=== PATIENT | female | born 1995 | race Caucasian/White ===

== ENCOUNTER 2022-09-09 13:38 | Outpatient (OUT) | payer BC, SELFPAY ==
--- NOTE | 2022-09-09 13:39 | US_ITS ---
[place] [address] Patient Name: MARGARITA SERRA MRN: [id number] date: 1995 Sex: F Assigned Patient Location: [place] Current Patient Location: Accession/Order Number: [id number] Exam Date: 09/09/2022 13:40 Report Date: 09/09/2022 19:30 At the request of: MAGDALENA DEGROOT Procedure: US OB transvaginal EXAMINATION: US OB transvaginal HISTORY: Positive test COMPARISON: No relevant comparison available. FINDINGS: GESTATIONAL SAC: Large amount of debris within gestational sac; sac is normal in size and shape. YOLK SAC: Present and normal appearing. POLE: Present and normal appearing. CARDIAC: Present. UTERUS: Normal size and appearance. OVARIES: Right: Normal. Left: Corpus lutein cyst. CERVIX: 5.1 cm in length and closed. CUL-DE-SAC: Normal. OTHER: Small subchorionic hematoma, 1.4 x 1.0 x 0.3 cm. AGE BY LMP: Unknown LMP. BEBO BY LMP: AGE BY US CRL: 9 weeks 3 days BEBO BY US CRL: 04/11/2023 US/US OB transvaginal IMPRESSION: 1. Single live intrauterine 9 weeks 3 days by today's ultrasound. 2. Large amount of echogenic debris throughout the gestational sac; nonspecific. Follow-up recommended. Electronically authenticated by: JENNY MONTELONGO Date: 09/09/2022 19:30
== END 2022-09-09 13:39 | disposition home or self-care (01) ==
LOC: US 13:39
PROVIDERS: Visit Provider Obstetrics & Gynecology
DX: Z34.91 Encounter for supervision of normal pregnancy, unspecified, first trimester (principal)
CPT/HCPCS: 76817

== ENCOUNTER 2022-09-13 07:30 | Outpatient (OUT) | payer BC, SELFPAY ==
[2022-09-13 08:34] LABS: Thyroid Stimulating Hormone 1.497 uIU/mL (0.358-3.740)
[2022-09-13 09:16] LABS: Basophils Absolute Auto 0.1 10^3/uL (0.0-0.1); Basophils Percent Auto 0.6 % (0.2-2.0); Eosinophils Absolute Auto 0.1 10^3/uL (0.0-0.7); Eosinophils Percent Auto 1.6 % (0.9-7.0); Hematocrit 38.5 % (36.0-48.0); Hemoglobin 12.7 g/dL (12.0-16.0); Immature Granulocytes Abs Auto 0.02 10^3/uL (0.00-0.03); Immature Granulocytes Pct Auto 0.2 % (0.0-0.5); Lymphocytes Absolute Auto 2.2 10^3/uL (1.2-3.8); Lymphocytes Percent Auto 25.3 % (20.5-60.0); Mean Corpuscular Hemoglobin 27.9 pg (26.7-34.0); Mean Corpuscular Volume 84.6 fL (81.0-99.0); Mean Platelet Volume 9.6 fL (9.5-13.5); Monocytes Absolute Auto 0.4 10^3/uL (0.3-0.8); Monocytes Percent Auto 4.9 % (1.7-12.0); Neutrophils Absolute Auto 5.8 10^3/uL (1.4-6.5); Neutrophils Percent Auto 67.4 % (43.0-75.0); Platelet Count 457 10^3/uL (150-450); Red Blood Count 4.55 10^6/uL (4.20-5.40); Red Cell Distribution Width 14.6 % (11.0-15.0); White Blood Count 8.6 10^3/uL (4.0-11.0)
[2022-09-13 09:21] LABS: Estimated Average Glucose 105 mg/dL; Glycohemoglobin A1C 5.3 % (4.5-6.2)
[2022-09-14 05:12] LABS: HCV Ab Non Reactive (Non Reactive); HIV Ab/p24 Ag Screen Non Reactive (Non Reactive); Rubella Antibodies, IgG 7.78 index (Immune >0.99)
[2022-09-14 06:09] LABS: HBsAg Screen Negative (Negative)
[2022-09-14 11:08] LABS: Rapid Plasma Reagin, Quant Non Reactive (NonRea<1:1)
== END 2022-09-13 07:31 | disposition home or self-care (01) ==
LOC: LAB 07:31
PROVIDERS: Visit Provider Obstetrics & Gynecology
DX: Z34.90 Encounter for supervision of normal pregnancy, unspecified, unspecified trimester (principal)
CPT/HCPCS: 36415; 83036; 84443; 85025; 86592; 86706; 86762; 86803; 86850; 86900; 86901; 87086; 87389

== ENCOUNTER 2022-09-26 08:01 | Emergency (ER) | payer BC, SELFPAY ==
[2022-09-26 08:05] VITALS: BP 114/68; PULSE 76; RESP 18; TEMP 36.4; O2SAT 99
--- NOTE | 2022-09-26 08:34 | ED_ITS ---
HPI - Abdominal Pain General Chief Complaint: Abdominal Pain Stated Complaint: 12 wks cramping Time Seen by Provider: 09/26/22 08:09 Source: patient Mode of arrival: walk-in Limitations: no limitations History of Present Illness HPI narrative: At 5am the patient developed severe abdominal cramping. She said that the pain has come in waves since then. No tylenol or anything else taken for the pain. She is 12 weeks US obtained earlier this month showed live IUP and BEBO 04/11/23. No vaginal bleeding. She complains of some pain to the left lower back. She became concerned because this did not happen with her first . Related Data Previous Rx's Medication Instructions Recorded nitrofurantoin 100 mg PO BID 7 days #14 caps 09/26/22 monohydrate/macrocrystals 100 mg capsule (Macrobid) Allergies Allergy/AdvReac Type Severity Reaction Status Date / Time No Known Drug Allergies Allergy Verified 09/26/22 08:05 PFSH PFSH Social History Smoking status: Current every day smoker Exam Narrative Exam Narrative: Nurses notes and vital signs reviewed and patient is not hypoxic. afebrile General: Well-appearing and in no apparent distress. Skin: Warm, dry, no pallor noted. No rash. Eye: Pupils are equal, round and EOMI. No scleral icterus. Ears, Nose, Mouth, and Throat: Oral mucosa is moist Cardiovascular: Regular Rate and Rhythm without murmur, gallop or rub. Respiratory: No accessory muscle use or respiratory distress. Lungs are clear to auscultation, no wheezing, rales or rhonchi Back: No midline thoracic or lumbar vertebral tenderness. No CVA tenderness Musculoskeletal: normal ROM, no lower extremity edema/swelling GI: Abdomen is soft, non-distended. Normal bowel sounds. No masses appreciated. No tenderness to palpation. No rebound, guarding, or rigidity noted. Neurological: A&O x4. No cranial nerve dysfunction observed. No truncal ataxia. Moves all extremities. Sensation intact. Psychiatric: Cooperative and interactive. Normal mood and affect. Constitutional Vital Signs, click to edit/add: Last Vital Signs Temp 97.6 F 09/26/22 08:05 Pulse 76 09/26/22 08:05 Resp 18 09/26/22 08:05 BP 114/68 09/26/22 08:05 Pulse Ox 99 09/26/22 08:05 Course Vital Signs Vital signs: Vital Signs Temperature 97.6 F 09/26/22 08:05 Pulse Rate 76 09/26/22 08:05 Respiratory Rate 18 09/26/22 08:05 Blood Pressure 114/68 09/26/22 08:05 Pulse Oximetry 99 09/26/22 08:05 Temperature 97.6 F 09/26/22 08:05 Pulse Rate 76 09/26/22 08:05 Respiratory Rate 18 09/26/22 08:05 Blood Pressure 114/68 09/26/22 08:05 Pulse Oximetry 99 09/26/22 08:05 MDM - Abdominal Pain MDM Narrative Medical decision making narrative: Patient given tylenol and urine ordered to be obtained for testing. UA showed leuk est. Call placed to Dr Suárez - Dr Ma is covering. Discussed patient's case - recommended patient reassurance, treatment for any potential UTI, a voidance of intercourse, ED return if bleeding develops, otherwise follow up with Dr Suárez as needed. Patient prescribed macrobid. Lab Data Attestation: I reviewed the patient's lab results. Labs: Lab Results 09/26/22 Range/Units 08:35 Urine Color Lt. yellow (YELLOW) Urine Clarity Clear (CLEAR) Urine pH 6.5 (5.0-9.0) Ur Specific Wesley 1.025 (1.005-1.025) Urine Protein Negative (NEG/TRACE) mg/dL Urine Glucose (UA) Negative (NEGATIVE) mg/dL Urine Ketones Negative (NEGATIVE) mg/dL Urine Occult Blood Negative (NEGATIVE) Urine Nitrite Negative (NEGATIVE) Urine Bilirubin Negative (NEGATIVE) Urine Urobilinogen 0.2 (0.2-1.0) EU/dL Ur Leukocyte Esterase Moderate A (NEGATIVE) Discharge Plan Discharge Chief Complaint: Abdominal Pain Clinical Impression: UTI (urinary tract infection), Abdominal pain Patient Disposition: Home, Self-Care Time of Disposition Decision: 09:22 Prescriptions / Home Meds: New nitrofurantoin monohyd/m-cryst [Macrobid] 100 mg capsule 100 mg PO BID 7 Days Qty: 14 0RF Rx Instructions: must administer with a meal/food Instructions: Abdominal Pain in (ED), Urinary Tract Infection in (ED) Stand Alone Forms: Portal Instructions Referrals: Shaun Suárez DO [Physician] - 1 week
[2022-09-26] MEDS: ACETAMINOPHEN 500 MG TABLET 1000 MG PO (08:44)
[2022-09-26 09:04] LABS: Bilirubin Urine NEGATIVE (NEGATIVE); Blood Urine NEGATIVE (NEGATIVE); Clarity Urine CLEAR (CLEAR); Color Urine LT. YELLOW (YELLOW); Glucose Urine UA NEGATIVE (NEGATIVE); Ketones Urine NEGATIVE (NEGATIVE); Leukocyte Esterase Urine MODERATE (NEGATIVE); Nitrite Urine NEGATIVE (NEGATIVE); Protein Urine NEGATIVE (NEG/TRACE); Specific Gravity Urine 1.025 (1.005-1.025); Urobilinogen Urine 0.2 EU/dL (0.2-1.0); pH Urine 6.5 (5.0-9.0)
[2022-09-26 09:09] LABS: Urine Microscopic Indicated YES
[2022-09-26 09:41] LABS: Bacteria Urine LARGE #/HPF (NONE SEEN); Mucus Urine NONE SEEN (NONE SEEN); RBC Urine NONE SEEN #/HPF (0-2); Squamous Epithelial Cell Urine MODERATE #/LPF (NONE/RARE)
[2022-09-26 09:42] LABS: Urine Culture Indicated YES
== END 2022-09-26 09:32 | disposition home or self-care (01) ==
PROVIDERS: Emergency Provider Emergency Medicine
DX: O23.41 Unspecified infection of urinary tract in pregnancy, first trimester (principal); N39.0 Urinary tract infection, site not specified; O26.891 Other specified pregnancy related conditions, first trimester; R10.9 Unspecified abdominal pain; O99.331 Smoking (tobacco) complicating pregnancy, first trimester; F17.210 Nicotine dependence, cigarettes, uncomplicated; Z3A.12 12 weeks gestation of pregnancy
CPT/HCPCS: 81001; 87086; 99283

== ENCOUNTER 2022-11-09 20:06 | Outpatient (REF) | payer BC, SELFPAY ==
[2022-11-16 22:08] LABS: Age Gdln ACOG Testing Note (.); HPV Aptima Negative (Negative); IGP, rfx Aptima HPV ASCU Note (.)
== END 2022-11-09 20:07 | disposition home or self-care (01) ==
LOC: LAB 20:06
PROVIDERS: Visit Provider Obstetrics & Gynecology
DX: Z01.419 Encounter for gynecological examination (general) (routine) without abnormal findings (principal)
CPT/HCPCS: 87624; G0145

== ENCOUNTER 2022-11-23 01:24 | Emergency (ER) | payer BC, SELFPAY ==
[2022-11-23 01:26] VITALS: BP 138/88; PULSE 78; RESP 18; TEMP 36.7; O2SAT 99; BMI 31.0
--- NOTE | 2022-11-23 01:40 | PC.NURSE ---
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
--- NOTE | 2022-11-23 01:48 | ED.EXTPRO1 ---
HPI - Extremity Problem General Chief complaint: Extremity Problem, Nontraumatic Stated complaint: RIGHT ARM PAIN Time Seen by Provider: 11/23/22 01:41 Source: patient Mode of arrival: walk-in Limitations: no limitations History of Present Illness HPI Narrative: patient is 5 months . 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 State she spent 7 hours scrubbing the wheels clean as they were very dirty. she now presents complaining of pain of scrubbing arm. States is she rest the arm it feels better but it hurts again when she uses it. no weakness , numbness or other injury. No other complaint Related Data Allergies Allergy/AdvReac Type Severity Reaction Status Date / Time No Known Drug Allergies Allergy Verified 09/26/22 08:05 Review of Systems ROS Status of ROS 10 or more systems reviewed and unremarkable except as noted in history and below [facility] Social History Smoking status: Current every day smoker Exam Constitutional Vital Signs, click to edit/add: Last Vital Signs Temp 98.0 F 11/23/22 01:26 Pulse 78 11/23/22 01:26 Resp 18 11/23/22 01:26 BP 138/88 11/23/22 01:26 Pulse Ox 99 11/23/22 01:26 O2 Del Method Room Air 11/23/22 01:26 Common normals: no apparent distress, average body habitus, oriented x3, no limitations, healthy appearing, alert and well nourished [facility] Common normals: normocephalic Eye Common normals: PERRL, EOMs intact bilaterally and conjunctivae normal Respiratory Common normals: normal respiratory effort, no retractions and no use of accessory muscles Cardio Common normals: regular rate, regular rhythm, S1 normal heart sound and S2 normal heart sound GI Common normals: non-tender Extremity Common normals: normal to inspection Other: normal inspection of the RUE. No deformity or swelling. normal hand grasp Neuro Common normals: oriented x3, CN's II-XII intact bilaterally, moves all extremities, no focal motor deficits and no sensory deficits noted Psych Appearance: grossly normal Course Vital Signs Vital signs: Vital Signs Temperature 98.0 F 11/23/22 01:26 Pulse Rate 78 11/23/22 01:26 Respiratory Rate 18 11/23/22 01:26 Blood Pressure 138/88 11/23/22 01:26 Pulse Oximetry 99 11/23/22 01:26 Oxygen Delivery Method Room Air 11/23/22 01:26 Temperature 98.0 F 11/23/22 01:26 Pulse Rate 78 11/23/22 01:26 Respiratory Rate 18 11/23/22 01:26 Blood Pressure 138/88 11/23/22 01:26 Pulse Oximetry 99 11/23/22 01:26 Oxygen Delivery Method Room Air 11/23/22 01:26 MDM - Extremity (Nontraumatic) MDM Narrative Medical decision making narrative: patient presents with overuse strain injury of the right upper extremity after scrubbing 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 she is also 5 months and not receiving relief with tylenol. Given one time dose of prednisone as anti inflammatory . Advised to avoid using her arm in any repetitive fashion until she is rechecked . Discharge Plan Discharge Chief Complaint: Extremity Problem, Nontraumatic Clinical Impression: Muscle strain of right upper extremity Patient Disposition: Home, Self-Care Instructions: Muscle Strain (ED) Additional Instructions: avoid use of the right arm in any repetitive fashion until rechecked by your doctor Stand Alone Forms: Portal Instructions Referrals: Physician,Non-Staff, MD [Primary Care Provider] - 1 week
[2022-11-23] MEDS: PREDNISONE 20 MG TABLET 40 MG PO (02:10)
== END 2022-11-23 02:14 | disposition home or self-care (01) ==
PROVIDERS: Emergency Provider Internal Medicine
DX: O9A.212 Injury, poisoning and certain other consequences of external causes complicating pregnancy, second trimester (principal); S46.911A Strain of unspecified muscle, fascia and tendon at shoulder and upper arm level, right arm, initial encounter; X50.3XXA Overexertion from repetitive movements, initial encounter; O99.332 Smoking (tobacco) complicating pregnancy, second trimester; F17.210 Nicotine dependence, cigarettes, uncomplicated; Z3A.20 20 weeks gestation of pregnancy
CPT/HCPCS: 99283

== ENCOUNTER 2022-11-23 09:00 | Outpatient (OUT) | payer BC, SELFPAY ==
--- NOTE | 2022-11-23 09:02 | US_ITS ---
[address] [address] Patient Name: MARGARITA SERRA MRN: [id number] date: 1995 Sex: F Assigned Patient Location: [place] Current Patient Location: .[facility] Accession/Order Number: [id number] Exam Date: 11/23/2022 09:03 Report Date: 11/23/2022 10:37 At the request of: MAGDALENA DEGROOT Procedure: US OB cervical length EXAMINATION: US OB anatomy HISTORY: ANATOMY COMPARISON: No relevant comparison available. TECHNIQUE: Transabdominal sonographic examination was performed for obstetrical and evaluation. FINDINGS: Number: 1 Heart Rate: 153.0 bpm H.B. /min Amniotic Fluid Volume: Subjectively normal position: Cephalic presentation, longitudinal lie Placental Location: Posterior, placental edge 4.7 cm from the internal cervical os Cervix Length: 4.2 cm , closed Normal anatomy: Lateral ventricles, cerebellum, posterior fossa, nose, lips, orbits, four-chamber heart, RVOT, LVOT, diaphragm, stomach, kidneys, abdominal cord insertion, bladder, umbilical cord arteries, three-vessel cord, spine, extremities BIOMETRY: BPD: 4.5 cm 19 weeks 3 days , 23% HC: 16.7 cm 19 weeks 3 days, 13% AC: 15.3 cm 20 weeks 3 days, 55% FL: 3.3 cm 20 weeks 2 days, 47% EFW:341.6 grams; 12 ounces, 51% FL/AC: 21.6 FL/BPD: 73.8 HC/AC: 1.1 GESTATIONAL AGE: Age by EDC: 20 weeks 1 days BEBO by EDC: 04/11/2023 Age by current US: 19 weeks 6 days BEBO by current US: 04/13/2023 US/US OB cervical length IMPRESSION: Normal anatomy scan *Reference: [employer] Practice Guideline for the performance of Obstetric Ultrasound Examinations, November 07, 2006. Electronically authenticated by: CESAR LORENZANA Date: 11/23/2022 10:37
--- NOTE | 2022-11-23 09:03 | US_ITS ---
[address] [address] Patient Name: MARGARITA SERRA MRN: [id number] date: 1995 Sex: F Assigned Patient Location: US Current Patient Location: .[facility] Accession/Order Number: [id number] Exam Date: 11/23/2022 09:03 Report Date: 11/23/2022 10:37 At the request of: MAGDALENA DEGROOT Procedure: US OB anatomy EXAMINATION: US OB anatomy HISTORY: ANATOMY COMPARISON: No relevant comparison available. TECHNIQUE: Transabdominal sonographic examination was performed for obstetrical and evaluation. FINDINGS: Number: 1 Heart Rate: 153.0 bpm H.B. /min Amniotic Fluid Volume: Subjectively normal position: Cephalic presentation, longitudinal lie Placental Location: Posterior, placental edge 4.7 cm from the internal cervical os Cervix Length: 4.2 cm , closed Normal anatomy: Lateral ventricles, cerebellum, posterior fossa, nose, lips, orbits, four-chamber heart, RVOT, LVOT, diaphragm, stomach, kidneys, abdominal cord insertion, bladder, umbilical cord arteries, three-vessel cord, spine, extremities BIOMETRY: BPD: 4.5 cm 19 weeks 3 days , 23% HC: 16.7 cm 19 weeks 3 days, 13% AC: 15.3 cm 20 weeks 3 days, 55% FL: 3.3 cm 20 weeks 2 days, 47% EFW:341.6 grams; 12 ounces, 51% FL/AC: 21.6 FL/BPD: 73.8 HC/AC: 1.1 GESTATIONAL AGE: Age by EDC: 20 weeks 1 days BEBO by EDC: 04/11/2023 Age by current US: 19 weeks 6 days BEBO by current US: 04/13/2023 US/US OB anatomy IMPRESSION: Normal anatomy scan *Reference: [employer] Practice Guideline for the performance of Obstetric Ultrasound Examinations, November 07, 2006. Electronically authenticated by: CESAR LORENZANA Date: 11/23/2022 10:37
== END 2022-11-23 09:01 | disposition home or self-care (01) ==
LOC: US 09:01
PROVIDERS: Visit Provider Obstetrics & Gynecology
DX: Z36.89 Encounter for other specified antenatal screening (principal); S46.911A Strain of unspecified muscle, fascia and tendon at shoulder and upper arm level, right arm, initial encounter; X50.3XXA Overexertion from repetitive movements, initial encounter; O99.332 Smoking (tobacco) complicating pregnancy, second trimester; F17.210 Nicotine dependence, cigarettes, uncomplicated; Z3A.20 20 weeks gestation of pregnancy
CPT/HCPCS: 76805; 76817; 99283

== ENCOUNTER 2023-01-11 08:27 | Outpatient (OUT) | payer BC, SELFPAY ==
[2023-01-11 09:59] LABS: Glucose 1 Hour 140 mg/dL
== END 2023-01-11 08:28 | disposition home or self-care (01) ==
LOC: LAB 08:27
PROVIDERS: Visit Provider Obstetrics & Gynecology
DX: Z13.1 Encounter for screening for diabetes mellitus (principal)
CPT/HCPCS: 36415; 82950

== ENCOUNTER 2023-01-21 07:16 | Outpatient (OUT) | payer BC, SELFPAY ==
[2023-01-21 07:35] LABS: Glucose Fasting 88 mg/dL (74-106)
[2023-01-21 09:14] LABS: Glucose 1 Hour 141 mg/dL
[2023-01-21 09:49] LABS: Glucose 2 Hour 141 mg/dL
[2023-01-21 10:52] LABS: Glucose 3 Hour 99 mg/dL
== END 2023-01-21 07:17 | disposition home or self-care (01) ==
LOC: LAB 07:16
PROVIDERS: Visit Provider Obstetrics & Gynecology
DX: Z13.1 Encounter for screening for diabetes mellitus (principal)
CPT/HCPCS: 36415; 82951; 82952

== ENCOUNTER 2023-02-17 10:43 | Outpatient (OUT) | payer BC, SELFPAY ==
--- NOTE | 2023-02-17 10:28 | US_ITS ---
[place] [id number] Patient Name: MARGARITA SERRA MRN: [id number] date: 1995 Sex: F Assigned Patient Location: US Current Patient Location: US Accession/Order Number: [id number] Exam Date: 02/17/2023 10:29 Report Date: 02/17/2023 12:09 At the request of: MAGDALENA DEGROOT Procedure: US OB growth EXAMINATION: US OB growth HISTORY: SIZE INCONSISTENT WITH DATES COMPARISON: No relevant comparison available. FINDINGS: Heart Rate: 142.0 bpm Amniotic Fluid Volume: 16.2 cm Number: 1.0 Position: Cephalic presentation, longitudinal lie Maximum Vertical Pocket: 5.8 cm cm 2.7 cm cm 4.0 cm cm 3.8 cm cm BIOMETRY: BPD: 7.8 cm cm; 31 weeks 1 days; , 11% HC: 29.4 cmcm; 32 weeks 4 days , 16% AC: 30.1 cm cm; 34 weeks 0 days, 90% FL: 6.3 cm cm; 32 weeks 4 days; 39.3 % % EFW: 2137.0 grams, 4 lbs. 11 oz., 64% FL/AC: 20.9 FL/BPD: 80.9 HC/AC: 1.0 GESTATIONAL AGE: Age by EDC: 32 weeks 3 days BEBO by EDC: 04/11/2023 Age by US: 32 weeks 4 days BEBO by US: 04/10/2023 US/US OB growth IMPRESSION: Normal interval growth Electronically authenticated by: CESAR LORENZANA Date: 02/17/2023 12:09
== END 2023-02-17 10:44 | disposition home or self-care (01) ==
LOC: US 10:43
PROVIDERS: Visit Provider Obstetrics & Gynecology
DX: O26.843 Uterine size-date discrepancy, third trimester (principal); Z3A.32 32 weeks gestation of pregnancy
CPT/HCPCS: 76816

== ENCOUNTER 2023-03-15 22:25 | Outpatient (REF) | payer BC, SELFPAY ==
--- OUTSIDE RECORDS SUMMARY | 2023-03-15 22:28 | XMS_ITS | CCD ---
Author Name Unknown Address [address] [facility] [address] [place] [address] Organization [facility] Care Team Providers Care Wood Science Professor Name Role Phone Awais Tatum Primary Care Unavailable Awais Tatum Attending Unavailable REQUEST, DR CARPENTER LISTED Primary Care Unavaila ble ZANE ., DR NICHOLS Attending Unavailable ZANE ., DR NICHOLS Admitting Unavailable REQUEST, DR CARPENTER LISTED Primary Care Unavaila ble ZANE ., DR NICHOLS Attending Unavailable ZANE ., DR NICHOLS Admitting Unavailable MARKER ., DR GRIFFIN Consulting Unavailable MARKER ., DR GRIFFIN Attending Unavailable MARKER ., DR GRIFFIN Admitting Unavailable REQUEST, DR CARPENTER LISTED Primary Care Unavaila ble ZANE ., DR NICHOLS Consulting Unavailable REQUEST, DR CARPENTER LISTED Primary Care Unavaila ble ZANE ., DR NICHOLS Attending Unavailable ZANE ., DR NICHOLS Admitting Unavailable HOLBROOK, DR CESAR Tate Consulting Unavailable REQUEST, DR CARPENTER LISTED Primary Care Unavaila ble ZANE ., DR NICHOLS Attending Unavailable ZANE ., DR NICHOLS Admitting Unavailable ZANE ., DR NICHOLS Consulting Unavailable ZANE ., DR NICHOLS Consulting Unavailable REQUEST, DR PAULINE LISTED Primary Care Unavaila ble ZANE ., DR NICHOLS Attending Unavailable ZANE ., DR NICHOLS Admitting Unavailable AHDOOT, LALO Consulting Unavailable KARASIK ., DR DOYLE Consulting Unavailabl e KARASIK ., DR DOYLE Attending Unavailabl e KARASIK ., DR DOYLE Admitting Unavailabl e REQUEST, DR PAULINE LISTED Primary Care Unavaila ble ZANE ., DR NICHOLS Consulting Unavailable ZIEBER, DR JENNY Mauricio Consulting Unavailable ZANE ., DR NICHOLS Consulting Unavailable REQUEST, DR PAULINE LISTED Primary Care Unavaila ble ZANE ., DR NICHOLS Attending Unavailable AZNE ., DR NICHOLS Admitting Unavailable ZANE ., DR NICHOLS Procedure Practitioner Unavail able WEST, DR CESAR Tate Consulting Unavailable REQUEST, DR NONE LISTED Primary Care Unavaila ble ZANE ., DR NICHOLS Attending Unavailable ZANE ., DR NICHOLS Admitting Unavailable ZANE ., DR NICHOLS Consulting Unavailable ZANE ., DR NICHOLS Consulting Unavailable REQUEST, DR NONE LISTED Primary Care Unavaila ble ZANE ., DR NICHOLS Attending Unavailable ZANE ., DR NICHOLS Admitting Unavailable ZANE ., DR NICHOLS Consulting Unavailable REQUEST, DR NONE LISTED Primary Care Unavaila ble ZANE ., DR NICHOLS Attending Unavailable ZANE ., DR NICHOLS Admitting Unavailable ZANE ., DR NICHOLS Consulting Unavailable REQUEST, NONE LISTED Primary Care Unavaila ble ZANE ., DR NICHOLS Attending Unavailable ZANE ., DR NICHOLS Admitting Unavailable ZANE ., DR NICHOLS Consulting Unavailable REQUEST, DR NONE LISTED Primary Care Unavaila ble ZANE ., DR NICHOLS Attending Unavailable ZANE ., DR NICHOLS Admitting Unavailable REQUEST, NONE LISTED Primary Care Unavaila ble ZANE ., DR NICHOLS Attending Unavailable ZANE ., DR NICHOLS Admitting Unavailable ZANE, MAGDALENA Attending Unavailable MATTAGNIESZKA Attending Unavailable ZANE, MAGDALENA Attending Unavailable ZANE, MAGDALENA Attending Unavailable MATT, AGNIESZKA Attending Unavailable Allergies Allergy Classification Reported Allergen(s) Allergy Type Date of Onset Reaction(s) Facility (1 source) No Known Medication Allergies; Translations: [No Known Medication Allergies] Propensity to adverse reactions to drug (disorder) [facility] Repository Problems Active Problems Problem Classification Problem Date Documented Da te Episodic/Chronic Biliary tract disease (1 source) Obstruction of bile duct; 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-2021 Chronic Past or Other Problems Problem Classification Problem Date Documented Date Episodic/Chronic Abdominal pain (1 source) Right upper quadrant pain; Translations: [RIGHT UPPER QUADRANT PAIN] Onset: 08-25-2021 Episodic Diabetes mellitus without complication (1 source) Impaired glucose tolerance (oral); Translations: [IMPAIRED GLUCOSE TOLERANCE ORAL] Onset: 06-24-2021 Episodic Diabetes or abnormal glucose tolerance complicating ; childbirth; or the puerperium (1 source) Abnormal glucose complicating ; Translations: [ABNORMAL GLUCOSE COMP ] Onset: 06-24-2021 Episodic Other complications of ; puerperium affecting management of mother (4 sources) Other complications of the puerperium, not elsewhere classified; Translations: [OTHER COMPLICATIONS PUERPERIUM NEC] Onset: 08-21-2021 Episodic Other complications of ; puerperium affecting management of mother (1 source) Liver and biliary tract disorders in childbirth; Translations: [LIVER AND JEAN CLAUDE TRACT D/O CHILDBIRTH] Onset: 12-08-2021 Episodic Other complications of (4 sources) Maternal care for excessive growth, third trimester, not applicable or unspecified; Translations: [MAT CARE EXCSS FTL GRTH 3RD TRI UNS] Onset: 08-16-2021 Episodic Other complications of (4 sources) Decreased movements, third trimester, not applicable or unspecified; Translations: [DECR MOVEMENTS 3RD TRI NA/UNS] Onset: 07-30-2021 Episodic Other connective tissue disease (1 source) Other specified soft tissue disorders; Translations: [OTHER SPEC SOFT TISSUE DISORDERS] Onset: 08-25-2021 Episodic Other inflammatory condition of skin (4 sources) Pruritus, unspecified; Translations: [PRURITUS UNSPECIFIED] Onset: 07-22-2021 Episodic Other and delivery including normal (9 sources) Encounter for care and examination of lactating mother; Translations: [Encounter for routine follow-up] Onset: 2021 Episodic Other screening for suspected conditions (not mental disorders or infectious disease) (8 sources) Encounter for screening for Streptococcus B; Translations: [Encounter for screening for diabetes mellitus] Onset: 06-09-2021 Episodic Residual codes; unclassified (1 source) 37 weeks gestation of ; Translations: [37 WEEKS GESTATION OF ] Onset: 12-08-2021 Episodic Residual codes; unclassified (1 source) 36 weeks gestation of ; Translations: [36 WEEKS GESTATION OF ] Onset: 08-07-2021 Episodic Residual codes; unclassified (1 source) 35 weeks gestation of ; Translations: [35 WEEKS GESTATION OF ] Onset: 08-04-2021 Episodic Residual codes; unclassified (1 source) 29 weeks gestation of ; Translations: [29 WEEKS GESTATION OF ] Onset: 06-24-2021 Episodic Screening and history of mental health and substance abuse codes (1 source) Personal history of nicotine dependence; Translations: [PERSONAL HISTORY OF NICOTINE DEPEND] Onset: 12-08-2021 Episodic Results Test Name Value Interpretation Reference Range Facil ity Phone Message/Callon Phone Message/Call - From: Hattie Bhatti LPN ([facility] ([facility])) To: Awais Tatum MD, MD; Sent: 12/03/2021 14:50:03 EDT Subject: General Message Caller Name: CinthiavChatter; Caller Number: [phone] per pharmacist, Gentamicin Opth ointment is not available, they do have Erythromycin ointment or Maxitral ointment From: Awais Tatum MD To: [facility] [employer] ([facility]); Sent: 12/03/2021 15:03:07 EDT Subject: Med Management Caller Name: CinthiavChatter; Caller Number: [phone] Submitted: Order:erythromycin ophthalmic (erythromycin 0.5% ophthalmic ointment) 1 yessenia OPTH QID Qty: 3.5 gm Duration: 5 day(s) Refills: 0 Substitutions Allowed Route To Pharmacy - [id number] Signed by Awais Tatum MD 12/03/2021 15:02:00 EDT Submitted: Discontinue:gentamici n ophthalmic (gentamicin 0.3% ophthalmic ointment) Signed by Awais Tatum MD 12/03/2021 15:02:00 EDT [facility] Phone Message/Call - From: Izabella Cosby ([facility] ([facility])) To: Awais Tatum MD, MD; Cc: [facility] ([facility]); Sent: 12/03/2021 09:00:10 EDT Subject: General Message Caller Name: MARGARITA SERRA; Caller Number: , M Patient called requesting an appointment with you. She said her right eye is red and irritated. Patient denies any itching or green matter but is concerned of pink eye due to having an infant. Your schedule is full but wondering if you wanted to work her in somewhere. Please advise. From: Rc HUFFMAN, Awais Bryant To: [facility]er[facility] ([facility]); Sent: 12/03/2021 09:01:20 EDT Subject: RE: General Message Caller Name: MARGARITA SERRA; Caller Number: , 89 Patient notified and placed on schedule Normal [facility] CBC AUTO DIFFon 08-20-2021 BASO # 0.1 103/ul Normal 0.0-0.1 [facility] Comment on above: Performed By: #### C BC #### [facility] [address] [place] [address] Dr. Kailash Esquivel Basophils/100 WBC (Bld) 0.5 % Normal 0.2-2.0 [facility] Comment on above: Performed By: #### C BC #### [facility] [address] [place] [address] Dr. Kailash Esquivel EO # 0.5 103/ul Normal 0.0-0.7 [facility] Comment on above: Performed By: #### C BC #### [facility] [address] [place] [address] Dr. Kailash Esquivel Eosinophils/100 WBC (Bld) 2.7 % Normal 0.9-7.0 [facility] Comment on above: Performed By: #### C BC #### [facility] [address] [place] [address] Dr. Kailash Esquivel Erythrocyte distribution width (RBC) [Ratio] 14.7 % Normal 11.0-15.0 [facility] Comment on above: Performed By: #### C BC #### [facility] [address] [place] [address] Dr. Kailash Esquivel Hematocrit (Bld) [Volume fraction] 24.5 % Critically low 36.0-48.0 [facility] Comment on above: Performed By: #### C BC #### [facility] [address] [place] [address] Dr. Kailash Esquivel Hemoglobin (Bld) [Mass/Vol] 7.7 g/dL Critically low 12.0-16.0 [facility] Comment on above: Result Comment: Post Performed By: #### C BC #### [facility] [address] [place] [address] Dr. Kailash Esquivel IG # 0.31 10e3/ul Critically high 0.00-0.03 [facility] Comment on above: Performed By: #### C BC #### [facility] [address] [place] [address] Dr. Kailash Esquivel IG % 1.7 % Critically high 0.0-0.5 [facility] Comment on above: Performed By: #### C BC #### [facility] [address] [place] [address] Dr. Kailash Esquivel LYMPH # 2.3 103/ul Normal 1.2-3.8 [facility] Comment on above: Performed By: #### C BC #### [facility] [address] [place] [address] Dr. Kailash Esquivel Lymphocytes/100 WBC (Bld) 12.6 % Critically low 20.5-60.0 [facility] Comment on above: Performed By: #### C BC #### [facility] [address] [place] [address] Dr. Kailash Esquivel MANUAL DIFF REQ NO Normal [facility] Comment on above: Performed By: #### C BC #### [facility] [address] [place] [address] Dr. Kailash Esquivel MCH (RBC) [Entitic mass] 26.7 pg Normal 26.7-34.0 [facility] Comment on above: Performed By: #### C BC #### [facility] [address] [place] [address] Dr. Kailash Esquivel MCHC (RBC) [Mass/Vol] 31.4 g/dL Normal 29.9-35.2 [facility] Comment on above: Performed By: #### C BC #### [facility] [address] [place] [address] Dr. Kailash Esquivel MCV (RBC) [Entitic vol] 85.1 fL Normal 81.0-99.0 [facility] Comment on above: Performed By: #### C BC #### [facility] [address] [place] [address] Dr. Kailash Esquivel MONO # 1.6 103/ul Critically high 0.3-0.8 [facility] Comment on above: Performed By: #### C BC #### [facility] [address] [place] [address] Dr. Kailash Esquivel Monocytes/100 WBC (Bld) 8.7 % Normal 1.7-12.0 [facility] Comment on above: Performed By: #### C BC #### [facility] [address] [place] [address] Dr. Kailash Esquivel NEUT # 13.5 103/ul Critically high 1.4-6.5 [facility] Comment on above: Performed By: #### C BC #### [facility] [address] [place] [address] Dr. Kailash Esquivel Neutrophils/100 WBC (Bld) 73.8 % Normal 43.0-75.0 [facility] Comment on above: Performed By: #### C BC #### [facility] [address] [place] [address] Dr. Kailash Esquivel Platelet mean volume (Bld) [Entitic vol] 9.6 fL Normal 9.5-13.5 [facility] Comment on above: Performed By: #### C BC #### [facility] [address] [place] [address] Dr. Kailash Esquivel PLT 493 103/ul Critically high 150-450 [facility] Comment on above: Performed By: #### C BC #### [facility] [address] [place] [address] Dr. Kailash Esquivel RBC 2.88 106/ul Critically low 4.20-5.40 [facility] Comment on above: Performed By: #### C BC #### [facility] [address] [place] [address] Dr. Kailash Esquivel WBC 18.3 103/ul Critically high 4.0-11.0 [facility] Comment on above: Performed By: #### C BC #### [facility] [address] [place] [address] Dr. Kailash Esquivel CBC AUTO DIFFon 08-17-2021 BASO # 0.1 103/ul Normal 0.0-0.1 [facility] Comment on above: Performed By: #### D RUGRPD #### [facility] [address] [place] [address] Dr. Kailash Esquivel Basophils/100 WBC (Bld) 0.4 % Normal 0.2-2.0 [facility] Comment on above: Performed By: #### D RUGRPD #### [facility] [address] [place] [address] Dr. Kailash Esquivel EO # 0.4 103/ul Normal 0.0-0.7 [facility] Comment on above: Performed By: #### D RUGRPD #### [facility] [address] [place] [address] Dr. Kailash Esquivel Eosinophils/100 WBC (Bld) 2.3 % Normal 0.9-7.0 [facility] Comment on above: Performed By: #### D RUGRPD #### [facility] [address] [place] [address] Dr. Kailash Esquivel Erythrocyte distribution width (RBC) [Ratio] 14.5 % Normal 11.0-15.0 [facility] Comment on above: Performed By: #### D RUGRPD #### [facility] [address] [place] [address] Dr. Kailash Esquivel Hematocrit (Bld) [Volume fraction] 30.5 % Critically low 36.0-48.0 [facility] Comment on above: Performed By: #### D RUGRPD #### [facility] [address] [place] [address] Dr. Kailash Esquivel Hemoglobin (Bld) [Mass/Vol] 9.8 g/dL Critically low 12.0-16.0 [facility] Comment on above: Performed By: #### D RUGRPD #### [facility] [address] [place] [address] Dr. Kailash Esquivel IG # 0.33 10e3/ul Critically high 0.00-0.03 [facility] Comment on above: Performed By: #### D RUGRPD #### [facility] [address] [place] [address] Dr. Kailash Esquivel IG % 2.1 % Critically high 0.0-0.5 [facility] Comment on above: Performed By: #### D RUGRPD #### [facility] [address] [place] [address] Dr. Kailash Esquivel LYMPH # 1.8 103/ul Normal 1.2-3.8 [facility] Comment on above: Performed By: #### D RUGRPD #### [facility] [address] [place] [address] Dr. Kailash Esquivel Lymphocytes/100 WBC (Bld) 11.3 % Critically low 20.5-60.0 [facility] Comment on above: Performed By: #### D RUGRPD #### [facility] [address] [place] [address] Dr. Kailash Esquivel MANUAL DIFF REQ NO Normal [facility] Comment on above: Performed By: #### D RUGRPD #### [facility] [address] [place] [address] Dr. Kailash Esquivel MCH (RBC) [Entitic mass] 27.2 pg Normal 26.7-34.0 [facility] Comment on above: Performed By: #### D RUGRPD #### [facility] [address] [place] [address] Dr. Kailash Esquivel MCHC (RBC) [Mass/Vol] 32.1 g/dL Normal 29.9-35.2 [facility] Comment on above: Performed By: #### D RUGRPD #### [facility] [address] [address] [address] Kailash Esquivel MCV (RBC) [Entitic vol] 84.7 fL Normal 81.0-99.0 [facility] Comment on above: Performed By: #### D RUGRPD #### [facility] [address] [place] [address] Dr. Kailash Esquivel MONO # 1.0 103/ul Critically high 0.3-0.8 [facility] Comment on above: Performed By: #### D RUGRPD #### [facility] [address] [place] [address] Dr. Kailash Esquivel Monocytes/100 WBC (Bld) 6.0 % Normal 1.7-12.0 [facility] Comment on above: Performed By: #### D RUGRPD #### [facility] [address] [place] [address] Dr. Kailash Esquivel NEUT # 12.4 103/ul Critically high 1.4-6.5 [facility] Comment on above: Performed By: #### D RUGRPD #### [facility] [address] [place] [address] Dr. Kailash Esquivel Neutrophils/100 WBC (Bld) 77.9 % Critically high 43.0-75.0 [facility] Comment on above: Performed By: #### D RUGRPD #### [facility] [address] [place] [address] Dr. Kailash Esquivel Platelet mean volume (Bld) [Entitic vol] 9.3 fL Critically low 9.5-13.5 [facility] Comment on above: Performed By: #### D RUGRPD #### [facility] [address] [place] [address] Dr. Kailash Esquivel PLT 611 103/ul Critically high 150-450 [facility] Comment on above: Performed By: #### D RUGRPD #### [facility] [address] [place] [address] Dr. Kailash Esquivel RBC 3.60 106/ul Critically low 4.20-5.40 [facility] Comment on above: Performed By: #### D RUGRPD #### [facility] [address] [address] [address] Kailash Esquivel WBC 15.9 103/ul Critically high 4.0-11.0 [facility] Comment on above: Performed By: #### D RUGRPD #### [facility] [address] [address] [address] Kailash Esquivel Covid-19 PCR ([facility])on 08-07 SARS-CoV-2 (COVID-19) RNA CHRISTOPHER+probe Ql (Unsp spec) Not detected Normal NOT DETECTED [facility] Comment on above: Result Comment: When diagnostic testing is negative, the possibility of a false negative should be considered in the context of a patient's recent exposures and the presence of clinical signs and symptoms consistent with SARS-CoV-2. This test is not yet approved or cleared by the [place] FDA. When there are no FDA-approved or cleared tests available, and other criteria are met, FDA can make tests available under an emergency access mechanism called an Emergency Use Authorization (EUA). The EUA for this test is supported by the [employer] Director of Health and Human Service's declaration that circumstances exist to justify the emergency use of in vitro diagnostics for the detection and/or diagnosis of the virus that causes COVID-19. This EUA will remain in effect for the duration of the COVID-19 declaration justifying emergency of IVDs, unless it is terminated or revoked by the FDA (after which the test may no longer be used). Performed By: #### C VDTBH #### [facility] [address] [place] [address] Dr. Kailash Esquivel DRUG SCREEN RAPID (URINE)on 08-17-2021 AMP Negative Normal NEGATIVE [facility] Comment on above: Performed By: #### D RUGRPD #### [facility] [address] [place] [address] Dr. Kailash Esquivel BAR Negative Normal NEGATIVE [facility] Comment on above: Performed By: #### D RUGRPD #### [facility] [address] [place] [address] Dr. Kailash Esquivel BUP Negative Normal NEGATIVE [facility] Comment on above: Performed By: #### D RUGRPD #### [facility] [address] [place] [address] Dr. Kailash Esquivel BZO Negative Normal NEGATIVE [facility] Comment on above: Performed By: #### D RUGRPD #### [facility] [address] [place] [address] Dr. Kailash Esquivel DIMA Negative Normal NEGATIVE [facility] Comment on above: Performed By: #### D RUGRPD #### [facility] [address] [place] [address] Dr. Kailash Esquivel CUT-OFFS SEE BELOW Normal [facility] Comment on above: Result Comment: AMP (Amphetamine): 500ng/mL, BAR (Barbituates): 200 ng/mL, BZO (Benzodiazepines): 150 ng/mL, BUP (Buprenorphine): 10 ng/mL, DIMA (Cocaine): 150 ng/mL, mAMP (Methamphetamine): 500 ng/mL, MTD (Methadone): 200 ng/mL, OPI (Opiates): 100 ng/mL, OXY (Oxycodone): 100 ng/mL, PCP (Phencyclidine): 25 ng/mL, PPX (Propoxyphene): 300 ng/mL, THC (Cannabinoids): 50 ng/mL, TCA (Trycyclic Antidepressants): 300 ng/mL Performed By: #### D RUGRPD #### [facility] [address] [place] [address] Dr. Kailash Esquivel DRUG CUT HEADER DRUG CLASS TEST SYSTEM CUT-OFF CONCENTRATIONS ARE FOLLOWS: Normal [facility] Comment on above: Performed By: #### D RUGRPD #### [facility] [address] [place] [address] Dr. Kailash Esquivel mAMP Negative Normal NEGATIVE [facility] Comment on above: Performed By: #### D RUGRPD #### [facility] [address] [place] [address] Dr. Kailash Esquivel MTD Negative Normal NEGATIVE [facility] Comment on above: Performed By: #### D RUGRPD #### [facility] [address] [place] [address] Dr. Kailash Esquivel OPI Negative Normal NEGATIVE [facility] Comment on above: Performed By: #### D RUGRPD #### [facility] [address] [address] [address] Kailash Esquivel OXY Negative Normal NEGATIVE [facility] Comment on above: Performed By: #### D RUGRPD #### [facility] [address] [address] [address] Kailash Esquivel PCP Negative Normal NEGATIVE [facility] Comment on above: Performed By: #### D RUGRPD #### [facility] [address] [address] [address] Kailash Esquivel PPX Negative Normal NEGATIVE [facility] Comment on above: Performed By: #### D RUGRPD #### [facility] [address] [address] [address] Kailash Esquivel TCA Negative Normal NEGATIVE [facility] Comment on above: Performed By: #### D RUGRPD #### [facility] [address] [address] [address] Kailash Esquivel THC Negative Normal NEGATIVE [facility] Comment on above: Performed By: #### D RUGRPD #### [facility] [address] [address] [address] Kailash Esquivel TYPE AND SCREENon 08-17-2021 TYPE AND SCREEN Negative Normal [facility] Comment on above: Performed By: #### D RUGRPD #### [facility] [address] [address] [address] Kailash Esquivel US PREG BIOPHY W NON STRESSo n 08-12-2021 US PREG BIOPHY W NON STRESS EXAMINATION: US PREG BIOPHY W NON STRESS HISTORY: Large for gestation age fetus COMPARISON: Ultrasound biophysical 08/05/2021 TECHNIQUE: Ultrasound biophysical profile was performed. FINDINGS: BREATHING MOVEMENTS: 2.0 GROSS BODY MOVEMENTS: 2.0 TONE: 2.0 QUALITATIVE AMNIOTIC FLUID VOLUME: 2.0 PRESENTATION: Cephalic HEART RATE: 132.4 bpm bpm. AMNIOTIC FLUID VOLUME: 17.0 cm GESTATIONAL AGE: 37 weeks 1 days CONCLUSION: Total biophysical profile score 8.0. Electronically authenticated by: JENNY MONTELONGO Date: 2021-08-12 16:53 Normal [facility] GROUP B STREP CULTUREon 07-10 S. agalactiae Ag Ql (Unsp spec) Culture Observations: NEGATIVE FOR GROUP B STREPTOCOCCUS. Normal [facility] Comment on above: Performed By: #### D RUGRPTayler #### [facility] [address] [place] [address] Dr. Kailash Esquivel US PREG BIOPHY W NON STRESSo n 08-05-2021 US PREG BIOPHY W NON STRESS EXAMINATION: US PREG BIOPHY W NON STRESS HISTORY: Large for gestation age fetus COMPARISON: No relevant comparison available. TECHNIQUE: Ultrasound biophysical profile was performed in the radiology department. FINDINGS: BREATHING MOVEMENTS: 2.0 GROSS BODY MOVEMENTS: 2.0 TONE: 2.0 QUALITATIVE AMNIOTIC FLUID VOLUME: 2.0 PRESENTATION: CEPHALIC HEART RATE: 142.9 bpm H.B./min AMNIOTIC FLUID VOLUME: 14.9 cm cm GESTATIONAL AGE: 36 weeks 1 days CONCLUSION: Total biophysical profile score: 8.0 Electronically authenticated by: CESAR LORENZANA Date: 2021-08-05 16:33 Normal [facility] US PREG GROWTHon 08-05-2021 US PREG GROWTH EXAMINATION: US PREG GROWTH HISTORY: Large for gestation age fetus COMPARISON: No relevant comparison available. FINDINGS: Heart Rate: 142.9 bpm Amniotic Fluid Volume: 14.9 cm Number: 1.0 Position: Cephalic presentation, longitudinal lie Maximum Vertical Pocket: 5.8 cm cm 1.5 cm cm 3.9 cm cm 3.8 cm cm BIOMETRY: BPD: 9.2 cm cm; 37 weeks 3 days; 80% HC: 33.4 cmcm; 38 weeks 2 days, 71% AC: 36.0 cm cm; 40 weeks 0 days, greater than 97% FL: 6.8 cm cm; 35 weeks 0 days; 18.7 % % EFW: 3481.6 grams, 7 lbs. 11 oz., 96% FL/AC: 18.9 FL/BPD: 74.0 HC/AC: 0.9 GESTATIONAL AGE: Age by EDC: 36 weeks 1 days BEBO by EDC: 09/01/2021 Age by US: 37 weeks 5 days BEBO by US: 08/21/2021 IMPRESSION: Estimated weight at the 96th percentile Abdominal circumference greater than the 97th percentile Electronically authenticated by: CESAR LORENZANA Date: 2021-08-05 16:40 Normal [facility] US PREG BIOPHY W NON STRESSo n 07-30-2021 US PREG BIOPHY W NON STRESS EXAM: US PREG BIOPHY W NON STRESS HISTORY: Reduced movement COMPARISON: None. TECHNIQUE: Limited ultrasound is performed for evaluation of biophysical profile multiple grayscale and color images are submitted for review. FINDINGS: Single live is seen. heart rate is 136 bpm. AKSHAT measures 16 cm. The largest amniotic fluid pocket measures 5.8 cm. Biophysical profile: body movements: 2 tone: 2 Amniotic fluid volume: 2 breathing movements: 2 Total biophysical profile score is 8 out of 8. IMPRESSION: Single live intrauterine with total biophysical profile score 8 out of 8. heart rate is 136 bpm. Electronically authenticated by: LALO LAWRENCE Date: 2021-07-30 20:41 Normal [facility] BILE ACIDS TOTALon 2 Bile Acids 2.4 umol/L Normal 0.0-10.0 [facility] Comment on above: Performed By: #### B ILEACD #### [facility] [address] [place] [address] Dr. Kailash Esquivel SGYareli 07-22-2021 AST [Catalytic activity/Vol] 19 U/L Normal 15-37 [facility] Comment on above: Performed By: #### A ST, ALT #### [facility] [address] [place] [address] Dr. Kailash WALLERPTon 07-22-2021 ALT [Catalytic activity/Vol] 30 U/L Normal 14-59 [facility] Comment on above: Performed By: #### A ST, ALT #### [facility] [address] [address] [address] Kailash Esquivel BILE ACIDS TOTALon 2 Bile Acids 6.8 umol/L Normal 0.0-10.0 [facility] Comment on above: Performed By: #### D RUGRPD #### [facility] [address] [place] [address] Dr. Kailash Jensen 06-25-2021 AST [Catalytic activity/Vol] 14 U/L Critically low 15-37 [facility] Comment on above: Performed By: #### A ST, ALT #### [facility] [address] [address] [address] Kailash Esquivel SGPTon 06-25-2021 ALT [Catalytic activity/Vol] 25 U/L Normal 14-59 [facility] Comment on above: Performed By: #### A ST, ALT #### [facility] [address] [address] [address] Kailash Esquivel GTT 3 HR PREGon 06-18-2021 Glucose [Mass/Vol] 75 mg/dL Normal 74-106 [facility] Comment on above: Performed By: #### G TT3P #### [facility] [address] [place] [address] Dr. Kailash Esquivel Glucose [Mass/Vol] 163 mg/dL Normal [facility] Comment on above: Performed By: #### G TT3P #### [facility] [address] [place] [address] Dr. Kailash Esquivel Glucose [Mass/Vol] 151 mg/dL Normal [facility] Comment on above: Performed By: #### G TT3P #### [facility] [address] [place] [address] Dr. Kailash Esquivel Glucose [Mass/Vol] 96 mg/dL Normal [facility] Comment on above: Performed By: #### G TT3P #### [facility] [address] [place] [address] Dr. Kailash Esquivel US PREG GROWTHon 06-18-2021 US PREG GROWTH EXAMINATION: US PREG GROWTH HISTORY: Excessive growth affecting management of mother COMPARISON: No relevant comparison available. FINDINGS: Heart Rate: 143.6 bpm Amniotic Fluid Volume: 17.9 cm Number: 1.0 Position: Cephalic presentation, longitudinal lie Maximum Vertical Pocket: 6.3 cm cm 3.9 cm cm 4.5 cm cm 3.1 cm cm BIOMETRY: BPD: 7.6 cm cm; 30 weeks 2 days; 71% HC: 27.6 cmcm; 30 weeks 2 days, 44% AC: 26.6 cm cm; 30 weeks 5 days, 83% FL: 5.5 cm cm; 29 weeks 1 days; 30.6 % % EFW: 1514.4 grams, 3 lbs. 5 oz., 68% FL/AC: 20.8 FL/BPD: 73.1 HC/AC: 1.0 GESTATIONAL AGE: Age by EDC: 29 weeks 2 days BEBO by EDC: 09/01/2021 Age by US: 30 weeks 1 day BEBO by US: 08/26/2021 IMPRESSION: Normal interval growth Electronically authenticated by: CESAR LORENZANA Date: 2021-06-18 07:44 Normal [facility] GLUCOSE - 1HRon 06-09-2021 Glucose [Mass/Vol] 140 mg/dL Critically high 74-106 [facility] Comment on above: Performed By: #### G LU1HR #### [facility] [address] [place] [address] Dr. Kailash Esquivel HEMOGRAM AND PLATELon 2021 Hematocrit (Bld) [Volume fraction] 35.4 % Critically low 36.0-48.0 [facility] Comment on above: Performed By: #### D RUGRPD #### [facility] [address] [place] [address] Dr. Kailash Esquivel Hemoglobin (Bld) [Mass/Vol] 11.5 g/dL Critically low 12.0-16.0 [facility] Comment on above: Performed By: #### D RUGRPD #### [facility] [address] [place] [address] Dr. Kailash Esquivel MCH (RBC) [Entitic mass] 29.6 pg Normal 26.7-34.0 [facility] Comment on above: Performed By: #### D RUGRPD #### [facility] [address] [address] [address] Kailash Esquivel MCHC (RBC) [Mass/Vol] 32.5 g/dL Normal 29.9-35.2 [facility] Comment on above: Performed By: #### D RUGRPD #### [facility] [address] [place] [address] Dr. Kailash Esquivel MCV (RBC) [Entitic vol] 91.0 fL Normal 81.0-99.0 [facility] Comment on above: Performed By: #### D RUGRPD #### [facility] [address] [place], [place] [address] Dr. Kailash Esquivel PLT 458 103/ul Critically high 150-450 [facility] Comment on above: Performed By: #### D RUGRPD #### [facility] [address] [place], [place] [address] Dr. Kailash Esquivel RBC 3.89 106/ul Critically low 4.20-5.40 [facility] Comment on above: Performed By: #### D RUGRPD #### [facility] [address] [place], [place] [address] Dr. Kailash Esquivel WBC 17.8 103/ul Critically high 4.0-11.0 [facility] Comment on above: Performed By: #### D RUGRPD #### [facility] [address] [place], [place] [address] Dr. Kailash Esquivel Encounters Encounter Date Encounter Type Care Provider Facility Start: 03-08-2023 End: 03-08-2023 ambulatory MAGDALENA REILLYO Not Available Start: 02-17-2023 End: 02-17-2023 ambulatory AGNIESZKA MATT Not Available Start: 02-02-2023 End: 02-02-2023 ambulatory MAGDALENA ZANE Not Available Start: 01-20-2023 End: 01-20-2023 ambulatory AGNIESZKA MATT Not Available Start: 01-06-2023 End: 01-06-2023 ambulatory MAGDALENA ZANE Not Available Start: 12-03-2021 End: 12-04-2021 ambulatory Awais Tatum Facility:[facility] Start: 09-15-2021 End: 09-15-[address] NONE LISTED REQUEST Facility: Start: 08-30-2021 End: 09-08-[address] NONE LISTED REQUEST Facility: Start: 2021 End: [address] NONE LISTED REQUEST Facility: Start: 08-21-2021 End: 08-21-[address] ELIAS BRENNAN . Facility: Start: 08-17-2021 End: 08-20-2021 Evaluation and management of inpatient DR MAGDALENA DEGROOT . Facility:[facility] Start: 08-17-[address] MAGDALENA DEGROOT . Facili ty:[facility] Start: 08-12-2021 End: 08-12-[address] YANIRA ZAMAN . Facility:[facility] Start: 08-06-2021 End: 08-06-[address] MAGDALENA DEGROOT . Facility:[facility] Start: 08-05-2021 End: 08-05-[address] CESAR LORENZANA Facility:[facility] Start: 07-30-2021 End: 07-30-[address] MAGDALENA DEGROOT . Facility:[facility] Start: 07-22-2021 End: 07-23-[address] MAGDALENA DEGROOT . Facility:[facility] Start: 06-25-2021 End: 06-26-[address] MAGDALENA DEGROOT . Facility:[facility] Start: 06-18-2021 End: 06-19-[address] CESAR LORENZANA Facility:[facility] Start: 06-09-2021 End: 06-10-[address] MAGDALENA DEGROOT . Facility: Procedures Date Procedure Procedure Detail Performing Clinician Start: 08-19-2021 Delivery of Products of Conception, External Approach NONE LISTED REQUEST Start: 08-18-2021 Drainage of Amniotic Fluid, Therapeutic from Products of Conception, Via Natural or Artificial Opening NONE LISTED REQUEST Start: 08-17-2021 Introduction of Horm one into Female Reproductive, Via Natural or Artificial Opening NONE LISTED REQUEST Payers Date Payer Category Payer Unknown [id number] 03.25. [id number] 1997 Unknown [id number] 1997 Unknown [id number] ..[id number] 0.1.291769.3.579.2.593 1997 Unknown [id number] ..[id number] 0.1.343802.3.579.2.593 1997 Unknown [id number] ..[id number] 0.1.068294.3.579.2.593 1997 Unknown [id number] ..[id number] 0.1.110227.3.579.2.593 1997 Unknown [id number] 2.16.84 0.1.817758.3.579.2.593 1997 Unknown [id number] 2.16.84 0.1.279916.3.579.2.593 1997 Unknown [id number] 2.16.84 0.1.642809.3.579.2.593 1997 Unknown [id number] 2.16.84 0.1.119391.3.579.2.593 1997 Unknown [id number] 2.16.84 0.1.721958.3.579.2.593 1997 Unknown [id number] 2.16.84 0.1.412589.3.579.2.593 1997 Unknown [id number] 2.16.84 0.1.536325.3.579.2.593 1997 Unknown [id number] 2.16.84 0.1.084764.3.579.2.593 1997 Unknown [id number] 2.16.84 0.1.637256.3.579.2.593 1997 Unknown [id number] 2.16.84 0.1.795740.3.579.2.1259 1997 Unknown [id number] 2.16.84 0.1.044960.3.579.2.1258 1997 Unknown [id number] 2.16.840 .1.202860.3.579.2.1258 1997 Unknown [id number] 2.16.840 .1.591663.3.579.2.1258 1997 Unknown [id number] 2.16.840 .1.480374.3.579.2.1259 1959 Unknown [id number] Summary Purpose Family History No Family History Records FoundNo Family History Records FoundNo Family History Records Found Advance Directives No Advanced Directives Records FoundNo Advanced Directives Records FoundNo Advanced Directives Records Found Additional Source Comments INFORMATION SOURCE (unrecogn ized section and content) DATE CREATED AUTHOR 12/04/[address] [facility] DATE CREATED AUTHOR AUTHOR'S ORGANIZ ATION 06/02/2022 [facility] DATE CREATED AUTHOR AUTHOR'S ORGANIZ ATION 03/09/2023 [facility] EPIC FOR RECORDS PERTAINING TO PATIENTS WHO ARE OR HAVE BEEN ENROLLED IN A CHEMICAL DEPENDENCY/SUBSTANCEABUSE PROGRAM, SOME INFORMATION MAY BE OMITTED. This clinical summary was aggregated from multiple sources. Caution should be exercised in using it in the provision of clinical care. This summary normalizes information from multiple sources, and as a consequence, information in this document may materially change the coding, format and clinical context of patient data. In addition, data may be omitted in some cases. CLINICAL DECISIONS SHOULD BE BASED ON THE PRIMARY CLINICAL RECORDS. [facility] [employer] provides no warranty or guarantee of the accuracy or completeness of information in this document.
== END 2023-03-15 22:26 | disposition home or self-care (01) ==
LOC: LAB 22:25
PROVIDERS: Visit Provider Obstetrics & Gynecology
DX: Z34.93 Encounter for supervision of normal pregnancy, unspecified, third trimester (principal)
CPT/HCPCS: 87070; 87081; 87106

== ENCOUNTER 2023-03-22 14:33 | Outpatient (OUT) | payer BC, SELFPAY ==
--- NOTE | 2023-03-22 14:36 | US_ITS ---
[address] [address] Patient Name: MARGARITA SERRA MRN: [id number] date: 1995 Sex: F Assigned Patient Location: US Current Patient Location: US Accession/Order Number: [id number] Exam Date: 03/22/2023 14:45 Report Date: 03/22/2023 15:22 At the request of: MAGDALENA DEGROOT Procedure: US OB growth EXAMINATION: US OB growth HISTORY: size of fetus inconsistent with dates in third trimester COMPARISON: No relevant comparison available. FINDINGS: Heart Rate: 152.5 bpm Amniotic Fluid Volume: 16.9 cm Number: 1.0 Position: Cephalic presentation, longitudinal lie Maximum Vertical Pocket: 5.2 cm cm 5.0 cm cm 1.3 cm cm 5.4 cm cm BIOMETRY: BPD: 8.8 cm cm; 35 weeks 5 days; 26% HC: 31.8 cmcm; 35 weeks 6 days , 6% AC: 33.8 cm cm; 37 weeks 5 days, 79% FL: 7.3 cm cm; 37 weeks 3 days; 55.7 % % EFW: 3139.7 grams, 6 lbs. 15 oz., 58% FL/AC: 21.6 FL/BPD: 82.7 HC/AC: 0.9 GESTATIONAL AGE: Age by EDC: 37 weeks 1 days BEBO by EDC: 04/11/2023 Age by US: 36 weeks 5 days BEBO by US: 04/14/2023 US/US OB growth IMPRESSION: Normal interval growth Electronically authenticated by: CESAR LORENZANA Date: 03/22/2023 15:22
--- OUTSIDE RECORDS SUMMARY | 2023-03-22 14:43 | XMS_ITS | CCD ---
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 Name Role Phone Awais Tatum Primary Care [...] Unavailable ZANE ., DR NICHOLS Admitting Unavailable [place], DR CESAR Tate Consulting Unavailable REQUEST, DR [...] MAGDALENA Attending Unavailable ZANE, MAGDALENA Attending Unavailable ZANE, MAGDALENA Attending Unavailable MATT, AGNIESZKA Attending Unavailable Allergies Allergy Classification Reported Allergen(s) Allergy Type Date of Onset Reaction(s) Facility (1 source) No Known Medication Allergies; Translations: [No Known Medication Allergies] Propensity to adverse reactions to drug (disorder) [facility] Repository Problems Active Problems Problem Classification Problem [...] Phone Message/Call - From: Hattie Bhatti LPN ([email or web address] ([place])) To: Awais Tatum MD, MD; Sent: 12/03/2021 14:50:03 EDT Subject: General Message Caller Name: [employer]; Caller Number: [phone] per pharmacist, Gentamicin Opth ointment is not available, they do have Erythromycin ointment or Maxitral ointment From: Awais Tatum MD To: [email or web address] ([place]); Sent: 12/03/2021 15:03:07 EDT Subject: Med Management Caller Name: [employer]; Caller Number: [phone] Submitted: Order:erythromycin ophthalmic (erythromycin 0.5% ophthalmic ointment) 1 yessenia OPTH QID Qty: 3.5 gm Duration: 5 day(s) Refills: 0 Substitutions Allowed Route To Pharmacy - [id number] Signed by Awais Tatum MD 12/03/2021 15:02:00 EDT Submitted: Discontinue:gentamici n ophthalmic (gentamicin 0.3% ophthalmic ointment) Signed by Awais Tatum MD 12/03/2021 15:02:00 EDT [facility] Phone Message/Call - From: Izabella Cosby ([email or web address] ([facility])) To: Awais Tatum MD, MD; Cc: [facility] ([place]); Sent: 12/03/2021 09:00:10 EDT Subject: General Message [...] HUFFMAN, Awais Bryant To: [facility] ([facility]); Sent: 12/03/2021 09:01:20 EDT Subject: RE: General Message Caller Name: MARGARITA SERRA; Caller Number: , [phone] Patient notified and placed on schedule Normal [facility] CBC AUTO DIFFon 08-20-2021 BASO # 0.1 103/ul Normal 0.0-0.1 [facility] Comment on above: Performed By: #### C BC #### [facility] [address] [place] [address] Dr. Kailash Esquivel Basophils/100 WBC (Bld) 0.5 % Normal 0.2-2.0 [facility] Comment on above: Performed By: #### C BC #### [facility] [address] [place] [address] Dr. Kailash Esquivel EO # 0.5 103/ul Normal 0.0-0.7 [facility] Comment on above: Performed By: #### C BC #### [facility] [address] [place] [address] Dr. Kailash Esquivel Eosinophils/100 WBC (Bld) 2.7 % Normal 0.9-7.0 [facility] Comment on above: Performed By: #### C BC #### [facility] [address] [place] [address] Dr. Kailash Esquivel Erythrocyte distribution width (RBC) [Ratio] 14.7 % Normal 11.0-15.0 [facility] Comment on above: Performed By: #### C BC #### [facility] [address] [place] [address] Dr. Kailash Esquivel Hematocrit (Bld) [Volume fraction] 24.5 % Critically low 36.0-48.0 [facility] Comment on above: Performed By: #### C BC #### [facility] [address] [place] [address] Dr. Kailash Esquivel Hemoglobin (Bld) [Mass/Vol] 7.7 g/dL Critically low 12.0-16.0 [facility] Comment on above: Result Comment: Post Performed By: #### C BC #### [facility] [address] [place] [address] Dr. Kailash Esquivel IG # 0.31 10e3/ul Critically high 0.00-0.03 [facility] Comment on above: Performed By: #### C BC #### [facility] [address] [place] [address] Dr. Kailash Esquivel IG % 1.7 % Critically high 0.0-0.5 [facility] Comment on above: Performed By: #### C BC #### [facility] [address] [place] [address] Dr. Kailash Esquivel LYMPH # 2.3 103/ul Normal 1.2-3.8 [facility] Comment on above: Performed By: #### C BC #### [facility] [address] [place] [address] Dr. Kailash Esquivel Lymphocytes/100 WBC (Bld) 12.6 % Critically low 20.5-60.0 [facility] Comment on above: Performed By: #### C BC #### [facility] [address] [place] [address] Dr. Kailash Esquivel MANUAL DIFF REQ NO Normal [facility] Comment on above: Performed By: #### C BC #### [facility] [address] [place] [address] Dr. Kailash Esquivel MCH (RBC) [Entitic mass] 26.7 pg Normal 26.7-34.0 [facility] Comment on above: Performed By: #### C BC #### [facility] [address] [place] [address] Dr. Kailash Esquivel MCHC (RBC) [Mass/Vol] 31.4 g/dL Normal 29.9-35.2 [facility] Comment on above: Performed By: #### C BC #### [facility] [address] [place] [address] Dr. Kailash Esquivel MCV (RBC) [Entitic vol] 85.1 fL Normal 81.0-99.0 [facility] Comment on above: Performed By: #### C BC #### [facility] [address] [place] [address] Dr. Kailash Esquivel MONO # 1.6 103/ul Critically high 0.3-0.8 [facility] Comment on above: Performed By: #### C BC #### [facility] [address] [place] [address] Dr. Kailash Esquivel Monocytes/100 WBC (Bld) 8.7 % Normal 1.7-12.0 [facility] Comment on above: Performed By: #### C BC #### [facility] [address] [place] [address] Dr. Kailash Esquivel NEUT # 13.5 103/ul Critically high 1.4-6.5 [facility] [place] Comment on above: Performed By: #### C BC #### [facility] [address] [place] [address] Dr. Kailash Esquivel Neutrophils/100 WBC (Bld) 73.8 % Normal 43.0-75.0 [facility] Comment on above: Performed By: #### C BC #### [facility] [address] [place] [address] Dr. Kailash Esquivel Platelet mean volume (Bld) [Entitic vol] 9.6 fL Normal 9.5-13.5 [facility] Comment on above: Performed By: #### C BC #### [facility] [address] [place] [address] Dr. Kailash Esquivel PLT 493 103/ul Critically high 150-450 [facility] Comment on above: Performed By: #### C BC #### [facility] [address] [place] [address] Dr. Kailash Esquivel RBC 2.88 106/ul Critically low 4.20-5.40 [facility] Comment on above: Performed By: #### C BC #### [facility] [address] [place] [address] Dr. Kailash Esquivel WBC 18.3 103/ul Critically high 4.0-11.0 [facility] Comment on above: Performed By: #### C BC #### [facility] [address] [place] [address] Dr. Kailash Esquivel CBC AUTO DIFFon 08-17-2021 BASO # 0.1 103/ul Normal 0.0-0.1 [facility] Comment on above: Performed By: #### D RUGRPD #### [facility] [address] [place] [address] Dr. Kailash Esquivel Basophils/100 WBC (Bld) 0.4 % Normal 0.2-2.0 [facility] Comment on above: Performed By: #### D RUGRPD #### [facility] [address] [place] [address] Dr. Kailash Esquivel EO # 0.4 103/ul Normal 0.0-0.7 [facility] Comment on above: Performed By: #### D RUGRPD #### [facility] [address] [place] [address] Dr. Kailash Esquivel Eosinophils/100 WBC (Bld) 2.3 % Normal 0.9-7.0 [facility] Comment on above: Performed By: #### D RUGRPD #### [facility] [address] [place] [address] Dr. Kailash Esquivel Erythrocyte distribution width (RBC) [Ratio] 14.5 % Normal 11.0-15.0 [facility] Comment on above: Performed By: #### D RUGRPD #### [facility] [address] [place] [address] Dr. Kailash sEquivel Hematocrit (Bld) [Volume fraction] 30.5 % Critically low 36.0-48.0 [facility] Comment on above: Performed By: #### D RUGRPD #### [facility] [address] [address] [address] Kailash Esquivel Hemoglobin (Bld) [Mass/Vol] 9.8 g/dL Critically low 12.0-16.0 [facility] Comment on above: Performed By: #### D RUGRPD #### [facility] [address] [place] [address] Dr. Kailash Esquivel IG # 0.33 10e3/ul Critically high 0.00-0.03 [facility] Comment on above: Performed By: #### D RUGRPD #### [facility] [address] [place] [address] Dr. Kailash Esquivel IG % 2.1 % Critically high 0.0-0.5 [facility] Comment on above: Performed By: #### D RUGRPD #### [facility] [address] [place] [address] Dr. Kailash Esquivel LYMPH # 1.8 103/ul Normal 1.2-3.8 [facility] Comment on above: Performed By: #### D RUGRPD #### [facility] [address] [place] [address] Dr. Kailash Esquivel Lymphocytes/100 WBC (Bld) 11.3 % Critically low 20.5-60.0 [facility] Comment on above: Performed By: #### D RUGRPD #### [facility] [address] [place] [address] Dr. Kailash Esquivel MANUAL DIFF REQ NO Normal [facility] Comment on above: Performed By: #### D RUGRPD #### [facility] [address] [place] [address] Dr. Kailash Esquivel MCH (RBC) [Entitic mass] 27.2 pg Normal 26.7-34.0 [facility] Comment on above: Performed By: #### D RUGRPD #### [facility] [address] [place] [address] Dr. Kailash Esquivel MCHC (RBC) [Mass/Vol] 32.1 g/dL Normal 29.9-35.2 [facility] Comment on above: Performed By: #### D RUGRPD #### [facility] [address] [address] [address] Kailash Esquivel MCV (RBC) [Entitic vol] 84.7 fL Normal 81.0-99.0 [facility] Comment on above: Performed By: #### D RUGRPD #### [facility] [address] [address] [address] Kailash Esquivel MONO # 1.0 103/ul Critically high 0.3-0.8 [facility] Comment on above: Performed By: #### D RUGRPD #### [facility] [address] [address] [address] Kailash Esquivel Monocytes/100 WBC (Bld) 6.0 % Normal 1.7-12.0 [facility] Comment on above: Performed By: #### D RUGRPD #### [facility] [address] [place] [address] Dr. Kailash Esquivel NEUT # 12.4 103/ul Critically high 1.4-6.5 [facility] [place] Comment on above: Performed By: #### D RUGRPD #### [facility] [address] [address] [address] Kailash Esquivel Neutrophils/100 WBC (Bld) 77.9 % Critically high 43.0-75.0 [facility] Comment on above: Performed By: #### D RUGRPD #### [facility] [address] [address] [address] Kailash Esquivel Platelet mean volume (Bld) [Entitic vol] 9.3 fL Critically low 9.5-13.5 [facility] Comment on above: Performed By: #### D RUGRPD #### [facility] [address] [address] [address] Kailash Esquivel PLT 611 103/ul Critically high 150-450 [facility] Comment on above: Performed By: #### D RUGRPD #### [facility] [address] [address] [address] Kailash Esquivel RBC 3.60 106/ul Critically low 4.20-5.40 [facility] Comment on above: Performed By: #### D RUGRPD #### [facility] [address] [address] [address] Kailash Esquivel WBC 15.9 103/ul Critically high 4.0-11.0 [facility] Comment on above: Performed By: #### D RUGRPD #### [facility] [address] [address] [address] Kailash Esquivel Covid-19 PCR ([facility])on 08-07 SARS-CoV-2 (COVID-19) RNA CHRISTOPHER+probe Ql (Unsp spec) Not detected Normal NOT DETECTED [facility] Comment on above: Result Comment: When diagnostic [...] for this test is supported by the Eligibility Technician of Health and Human Service's declaration that [...] used). Performed By: #### C VDTBH #### [facility] [address] [place] [address] Dr. Kailash Esquivel DRUG SCREEN RAPID (URINE)on 08-17-2021 AMP Negative Normal NEGATIVE [facility] Comment on above: Performed By: #### D RUGRPD #### [facility] [address] [place] [address] Dr. Kailash Esquivel BAR Negative Normal NEGATIVE [facility] Comment on above: Performed By: #### D RUGRPD #### [facility] [address] [place] [address] Dr. Kailash Esquivel BUP Negative Normal NEGATIVE [facility] Comment on above: Performed By: #### D RUGRPD #### [facility] [address] [place] [address] Dr. Kailash Esquivel BZO Negative Normal NEGATIVE [facility] Comment on above: Performed By: #### D RUGRPD #### [facility] [address] [place] [address] Dr. Kailash Esquivel DIMA Negative Normal NEGATIVE [facility] Comment on above: Performed By: #### D RUGRPD #### [facility] [address] [place] [address] Dr. Kailash Esquivel CUT-OFFS SEE BELOW Normal [facility] Comment on above: Result Comment: AMP [...] ng/mL Performed By: #### D RUGRPD #### [facility] [address] [place] [address] Dr. Kailash Esquivel DRUG CUT HEADER DRUG CLASS TEST SYSTEM CUT-OFF CONCENTRATIONS ARE FOLLOWS: Normal [facility] Comment on above: Performed By: #### D RUGRPD #### [facility] [address] [place] [address] Dr. Kailash Esquivel mAMP Negative Normal NEGATIVE [facility] Comment on above: Performed By: #### D RUGRPD #### [facility] [address] [place] [address] Dr. Kailash Esquivel MTD Negative Normal NEGATIVE [facility] Comment on above: Performed By: #### D RUGRPD #### [facility] [address] [place] [address] Dr. Kailash Esquivel OPI Negative Normal NEGATIVE [facility] Comment on above: Performed By: #### D RUGRPD #### [facility] [address] [address] [address] Kailash Esquivel OXY Negative Normal NEGATIVE [facility] Comment on above: Performed By: #### D RUGRPD #### [facility] [address] [address] [address] Kailash Esquivel PCP Negative Normal NEGATIVE [facility] Comment on above: Performed By: #### D RUGRPD #### [facility] [address] [address] [address] Kailash Esquivel PPX Negative Normal NEGATIVE [facility] Comment on above: Performed By: #### D RUGRPD #### [facility] [address] [address] [address] Kailash Esquivel TCA Negative Normal NEGATIVE [facility] Comment on above: Performed By: #### D RUGRPD #### [facility] [address] [address] [address] Kailash Esquivel THC Negative Normal NEGATIVE [facility] Comment on above: Performed By: #### D RUGRPD #### [facility] [address] [address] [address] Kialash Esquivel TYPE AND SCREENon 08-17-2021 TYPE AND SCREEN Negative Normal [facility] Comment on above: Performed By: #### D RUGRPD #### [facility] [address] [address] [address] Kailash Esquivel US PREG BIOPHY W [...] by: JENNY MONTELONGO Date: 2021-08-12 16:53 Normal [facility] GROUP B STREP CULTUREon 07-10 S. agalactiae Ag Ql (Unsp spec) Culture Observations: NEGATIVE FOR GROUP B STREPTOCOCCUS. Normal [facility] Comment on above: Performed By: #### D LEATHA #### [facility] [address] [place] [address] Dr. Kailash Esquivel US PREG BIOPHY W [...] by: CESAR LORENZANA Date: 2021-08-05 16:33 Normal [facility] US PREG GROWTHon 08-05-2021 US PREG GROWTH [...] CESAR LORENZANA Date: 2021-08-05 16:40 Normal [facility] US PREG BIOPHY W NON STRESSo n [...] LALO LAWRENCE Date: 2021-07-30 20:41 Normal [facility] BILE ACIDS TOTALon 2 Bile Acids 2.4 umol/L Normal 0.0-10.0 [facility] Comment on above: Performed By: #### B ILEACD #### [facility] [address] [place] [address] Dr. Kailash Jensen 07-22-2021 AST [Catalytic activity/Vol] 19 U/L Normal 15-37 [facility] Comment on above: Performed By: #### A ST, ALT #### [facility] [address] [place], [place] [address] Dr. Kailash Esquivel [facility] 07-22-2021 ALT [Catalytic activity/Vol] 30 U/L Normal 14-59 [facility] Comment on above: Performed By: #### A ST, ALT #### [facility] [address] [place], [place] [address] Dr. Kailash Esquivel BILE ACIDS TOTALon 2 Bile Acids 6.8 umol/L Normal 0.0-10.0 [facility] Comment on above: Performed By: #### D RUGRPD #### [facility] [address] [address] [address] Kailash Jensen 06-25-2021 AST [Catalytic activity/Vol] 14 U/L Critically low 15-37 [facility] Comment on above: Performed By: #### A ST, ALT #### [facility] [address] [place] [address] Dr. Kailash Esquivel SGPTon 06-25-2021 ALT [Catalytic activity/Vol] 25 U/L Normal 14-59 [facility] Comment on above: Performed By: #### A ST, ALT #### [facility] [address] [place] [address] Dr. Kailash Esquivel GTT 3 HR PREGon 06-18-2021 Glucose [Mass/Vol] 75 mg/dL Normal 74-106 [facility] Comment on above: Performed By: #### G TT3P #### [facility] [address] [place] [address] Dr. Kailash Esquivel Glucose [Mass/Vol] 163 mg/dL Normal [facility] Comment on above: Performed By: #### G TT3P #### [facility] [address] [place] [address] Dr. Kailash Esquivel Glucose [Mass/Vol] 151 mg/dL Normal [facility] Comment on above: Performed By: #### G TT3P #### [facility] [address] [place] [address] Dr. Kailash Esquivel Glucose [Mass/Vol] 96 mg/dL Normal [facility] Comment on above: Performed By: #### G TT3P #### [facility] [address] [place] [address] Dr. Kailash Esquivel US PREG GROWTHon 06-18-2021 [...] by: CESAR LORENZANA Date: 2021-06-18 07:44 Normal [facility] GLUCOSE - 1HRon 06-09-2021 Glucose [Mass/Vol] 140 mg/dL Critically high 74-106 [facility] Comment on above: Performed By: #### G LU1HR #### [facility] [address] [place] [address] Dr. Kailash Esquivel HEMOGRAM AND PLATELon 2021 Hematocrit (Bld) [Volume fraction] 35.4 % Critically low 36.0-48.0 [facility] Comment on above: Performed By: #### D RUGRPD #### [facility] [address] [address] [address] Kailash Esquivel Hemoglobin (Bld) [Mass/Vol] 11.5 g/dL Critically low 12.0-16.0 [facility] Comment on above: Performed By: #### D RUGRPD #### [facility] [address] [address] [address] Kailash Esquivel MCH (RBC) [Entitic mass] 29.6 pg Normal 26.7-34.0 [facility] Comment on above: Performed By: #### D RUGRPD #### [facility] [address] [address] [address] Kailash Esquivel MCHC (RBC) [Mass/Vol] 32.5 g/dL Normal 29.9-35.2 [facility] Comment on above: Performed By: #### D RUGRPD #### [facility] [address] [address] [address] Kailash Esquivel MCV (RBC) [Entitic vol] 91.0 fL Normal 81.0-99.0 [facility] Comment on above: Performed By: #### D RUGRPD #### [facility] [address], [place] [address] Dr. Kailash Esquivel PLT 458 103/ul Critically high 150-450 [facility] Comment on above: Performed By: #### D RUGRPD #### [facility] [address] [place], [place] [address] Dr. Kailash Esquivel RBC 3.89 106/ul Critically low 4.20-5.40 [facility] Comment on above: Performed By: #### D RUGRPD #### [facility] [address] [place], [place] [address] Dr. Kailash Esquivel WBC 17.8 103/ul Critically high 4.0-11.0 [facility] [place] Comment on above: Performed By: #### D RUGRPD #### [facility] [address] [address] [address] Kailash Esquivel Encounters Encounter Date Encounter Type Care Provider Facility Start: 03-15-2023 End: 03-15-2023 ambulatory MAGDALENA ZANE Not Available Start: 03-08-2023 End: 03-08-2023 ambulatory MAGDALENA ZANE Not Available Start: 02-17-2023 End: 02-17-2023 ambulatory AGNIESZKA MATT Not Available Start: 02-02-2023 End: 02-02-2023 ambulatory MAGDALENA ZANE Not Available Start: 01-20-2023 End: 01-20-2023 ambulatory AGNIESZKA MATT Not Available Start: 01-06-2023 End: 01-06-2023 ambulatory MAGDALENA ZANE Not Available Start: 12-03-2021 End: 12-04-2021 ambulatory Awais Tatum Facility:[facility] Start: 09-15-2021 End: 09-15-[address] NONE LISTED REQUEST Facility: Start: 08-30-2021 End: 09-08-[address] NONE LISTED REQUEST Facility: Start: 2021 End: [address] NONE LISTED REQUEST Facility:[facility] Start: 08-21-2021 End: 08-21-[address] ELIAS BRENNAN . Facility:[facility] Start: 08-17-2021 End: 08-20-2021 Evaluation and management [...] REQUEST Payers Date Payer Category Payer Unknown [id number] 1997 Unknown [id number] 1997 Unknown [id number] 1997 Unknown [id number] .[id number] [id number] 1997 Unknown [id number] 1997 Unknown [id number] 2.16.84 [id number] 1997 Unknown [id number] 2.16.84 [id number] 1997 Unknown [id number] 2.16.84 [id number] 1997 Unknown [id number] 2.16.84 [id number] 1997 Unknown [id number] 2.16.84 [id number] 1997 Unknown [id number] 2.16.84 0.1.281747.3.579.2.593 1997 Unknown [id number] 2.16.84 0.1.109476.3.579.2.593 1997 Unknown [id number] 2.16.84 0.1.253598.3.579.2.593 1997 Unknown [id number] 2.16.84 0.1.161143.3.579.2.593 1997 Unknown [id number] 2.16.84 0.1.999010.3.579.2.593 1997 Unknown [id number] 2.16.84 0.1.541148.3.579.2.1259 1997 Unknown [id number] 2.16.84 0.1.727814.3.579.2.1259 1997 Unknown [id number] 2.16.84 0.1.607014.3.579.2.1259 1997 Unknown [id number] 2.16.840 .1.562136.3.579.2.1259 1997 Unknown [id number] 2.16.840 .1.956189.3.579.2.1259 1997 Unknown [id number] 2.16.840 .1.914016.3.579.2.1259 1959 Unknown [id number] Summary Purpose Family History No Family History Records FoundNo Family History Records FoundNo Family History Records Found Advance Directives No Advanced Directives Records FoundNo Advanced Directives Records FoundNo Advanced Directives Records Found Additional Source Comments INFORMATION SOURCE (unrecogn ized section and content) DATE CREATED AUTHOR 12/04/2021 [facility] l DATE CREATED AUTHOR AUTHOR'S ORGANIZ ATION 06/02/2022 [facility] DATE CREATED AUTHOR AUTHOR'S ORGANIZ ATION 03/16/2023 [facility] EPIC FOR RECORDS PERTAINING TO [...] BE BASED ON THE PRIMARY CLINICAL RECORDS. [facility] [employer] [facility]. provides no warranty or guarantee of the accuracy or completeness of information in this document.
[2023-03-22 15:24] LABS: Basophils Absolute Auto 0.1 10^3/uL (0.0-0.1); Basophils Percent Auto 0.4 % (0.2-2.0); Eosinophils Absolute Auto 0.2 10^3/uL (0.0-0.7); Eosinophils Percent Auto 1.6 % (0.9-7.0); Hematocrit 32.6 % (36.0-48.0); Hemoglobin 10.2 g/dL (12.0-16.0); Immature Granulocytes Abs Auto 0.22 10^3/uL (0.00-0.03); Immature Granulocytes Pct Auto 1.7 % (0.0-0.5); Lymphocytes Absolute Auto 2.2 10^3/uL (1.2-3.8); Lymphocytes Percent Auto 16.6 % (20.5-60.0); Mean Corpuscular HGB Conc 31.3 g/dL (29.9-35.2); Mean Corpuscular Hemoglobin 26.4 pg (26.7-34.0); Mean Corpuscular Volume 84.5 fL (81.0-99.0); Mean Platelet Volume 10.1 fL (9.5-13.5); Monocytes Absolute Auto 0.9 10^3/uL (0.3-0.8); Monocytes Percent Auto 7.1 % (1.7-12.0); Neutrophils Absolute Auto 9.7 10^3/uL (1.4-6.5); Neutrophils Percent Auto 72.6 % (43.0-75.0); Platelet Count 443 10^3/uL (150-450); Red Blood Count 3.86 10^6/uL (4.20-5.40); Red Cell Distribution Width 14.6 % (11.0-15.0); White Blood Count 13.3 10^3/uL (4.0-11.0)
== END 2023-03-22 14:34 | disposition home or self-care (01) ==
LOC: US 14:33
PROVIDERS: Visit Provider Obstetrics & Gynecology
DX: O26.843 Uterine size-date discrepancy, third trimester (principal); Z3A.37 37 weeks gestation of pregnancy
CPT/HCPCS: 36415; 76816; 85025

== ENCOUNTER 2023-04-04 04:48 | Inpatient (IN) | payer BC, SELFPAY ==
[2023-04-04] VITALS (58 sets, daily range): BP systolic 81–140; BP diastolic 50–80; PULSE 74–116; RESP 16–18; TEMP 36.1–36.9
--- OUTSIDE RECORDS SUMMARY | 2023-04-04 04:52 | XMS_ITS | CCD ---
Author Name Unknown Address [id number] [place] [address] Organization [facility] Care Team Providers Care Tobacco Feeder Catcher Name Role Phone Awais Tatum Primary Care Unavailable Awais Tatum Attending Unavailable REQUEST, DR CARPENTER LISTED Primary Care Unavaila ble JOSE ARMANDO ., DR NICHOLS Attending Unavailable JOSE ARMANDO ., DR NICHOLS Admitting Unavailable REQUEST, DR CARPENTER LISTED Primary Care Unavaila ble JOSE ARMANDO ., DR NICHOLS Attending Unavailable JOSE ARMANDO ., DR NICHOLS Admitting Unavailable MARKER ., DR GRIFFIN Consulting Unavailable MARKER ., DR GRIFFIN Attending Unavailable MARKER ., DR GRIFFIN Admitting Unavailable REQUEST, DR PAULINE LISTED Primary Care Unavaila ble JOSE ARMANDO ., DR NICHOLS Consulting Unavailable REQUEST, DR CARPENTER LISTED Primary Care Unavaila ble JOSE ARMANDO ., DR NICHOLS Attending Unavailable JOSE ARMNADO ., DR NICHOLS Admitting Unavailable PEP, DR CESAR Tate Consulting Unavailable REQUEST, DR CARPENTER LISTED Primary Care Unavaila ble JOSE ARMANDO ., DR NICHOLS Attending Unavailable JOSE ARMANDO ., DR NICHOLS Admitting Unavailable JOSE ARMANDO ., DR NICHOLS Consulting Unavailable JOSE ARMANDO ., DR NICHOLS Consulting Unavailable REQUEST, DR NONE LISTED Primary Care Unavaila ble JOSE ARMANDO ., DR NICHOLS Attending Unavailable JOSE ARMANDO ., DR NICHOLS Admitting Unavailable LALO LAWRENCE Consulting Unavailable KARASIK ., DR DOYLE Consulting Unavailabl e KARASIK ., DR DOYLE Attending Unavailabl e KARASIK ., DR DOYLE Admitting Unavailabl e REQUEST, DR NONE LISTED Primary Care Unavaila ble JOSE ARMANDO ., DR NICHOLS Consulting Unavailable ZIEBER, DR JENNY Mauricio Consulting Unavailable JOSE ARMANDO ., DR NICHOLS Consulting Unavailable REQUEST, DR NONE LISTED Primary Care Unavaila ble JOSE ARMANDO ., DR NICHOLS Attending Unavailable JOSE ARMANDO ., DR NICHOLS Admitting Unavailable JOSE ARMANDO ., DR NICHOLS Procedure Practitioner Unavail able WEST, DR CESAR Tate Consulting Unavailable REQUEST, DR NONE LISTED Primary Care Unavaila ble JOSE ARMANDO ., DR NICHOLS Attending Unavailable JOSE ARMANDO ., DR NICHOLS Admitting Unavailable JOSE ARMANDO ., DR NICHOLS Consulting Unavailable JOSE ARMANDO ., DR NICHOLS Consulting Unavailable REQUEST, DR NONE LISTED Primary Care Unavaila ble JOSE ARMANDO ., DR NICHOLS Attending Unavailable JOSE ARMANDO ., DR NICHOLS Admitting Unavailable JOSE ARMANDO ., DR NICHOLS Consulting Unavailable REQUEST, DR NONE LISTED Primary Care Unavaila ble JOSE ARMANDO ., DR NICHOLS Attending Unavailable JOSE ARMANDO ., DR NICHOLS Admitting Unavailable JOSE ARMANDO ., DR NICHOLS Consulting Unavailable REQUEST, DR NONE LISTED Primary Care Unavaila ble JOSE ARMANDO ., DR NICHOLS Attending Unavailable JOSE ARMANDO ., DR NICHOLS Admitting Unavailable JOSE ARMANDO ., DR NICHOLS Consulting Unavailable REQUEST, DR NONE LISTED Primary Care Unavaila ble JOSE ARMANDO ., DR NICHOLS Attending Unavailable JOSE ARMANDO ., DR NICHOLS Admitting Unavailable REQUEST, NONE LISTED Primary Care Unavaila ble JOSE ARMANDO ., DR NICHOLS Attending Unavailable JOSE ARMANDO ., DR NICHOLS Admitting Unavailable Unavailable Primary Care Provider Unavailabl e JOSE ARMANDO, MAGDALENA Attending Unavailable MATT, AGNIESZKA Attending Unavailable JOSE ARMANDO, MAGDALENA Attending Unavailable JOSE ARMANDO, MAGDALENA Attending Unavailable JOSE ARMANDO, MAGDALENA Attending Unavailable JOSE ARMANDO, MAGDALENA Attending Unavailable MATT, AGNIESZKA Attending Unavailable Allergies Allergy Classification Reported Allergen(s) Allergy Type Date of Onset Reaction(s) Facility (1 source) No Known Medication Allergies; Translations: [No Known Medication Allergies] Propensity to adverse reactions to drug (disorder) [facility] Repository Problems Active Problems Problem Classification Problem Date Documented Da te Episodic/Chronic Biliary tract disease (1 source) Obstruction of bile duct; 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-2021 Chronic Other and delivery including normal (11 sources) Encounter for care and examination of lactating mother; Translations: [Encounter for routine follow-up] Onset: 2021 Episodic Past or Other Problems Problem Classification Problem [...] Translations: [PRURITUS UNSPECIFIED] Onset: 07-22-2021 Episodic Other screening for suspected conditions (not [...] Results Test Name Value Interpretation Reference Range Facility ALL CBC WITH AUTO DIFFon BASOPHILS ABSOLUTE AUTO 0.1 [facility] Basophils/100 WBC (Bld) 0.4 % 0.2 - 2.0 % [facility] Eosinophils/100 WBC (Bld) 1.6 % 0.9 - 7.0 % [facility] Erythrocyte distribution width (RBC) [Ratio] 14.6 % 11.0 - 15.0 % [facility] Hematocrit (Bld) [Volume fraction] 32.6 % Low 36.0 - 48.0 % [facility] Hemoglobin (Bld) [Mass/Vol] 10.2 g/dL Low 12.0 - 16.0 g/dL [facility] IMMATURE GRANULOCYTES ABS AUTO 0.22 High [facility] Immature granulocytes/100 WBC (Bld) 1.7 % High 0.0 - 0.5 % [facility] Interpretation and review of laboratory results Abnormal [facility] LYMPHOCYTES ABSOLUTE AUTO 2.2 [facility] Lymphocytes/100 WBC (Bld) 16.6 % Low 20.5 - 60.0 % [facility] MCH (RBC) [Entitic mass] 26.4 pg Low 26.7 - 34.0 pg [facility] MCHC (RBC) [Mass/Vol] 31.3 g/dL 29.9 - 35.2 g/dL [facility] MCV (RBC) [Entitic vol] 84.5 fL 81.0 - 99.0 fL [facility] MONOCYTES ABSOLUTE AUTO 0.9 High [facility] Monocytes/100 WBC (Bld) 7.1 % 1.7 - 12.0 % [facility] NEUTROPHILS ABSOLUTE AUTO 9.7 High [facility] Neutrophils/100 WBC (Bld) 72.6 % 43.0 - 75.0 % [facility] Platelet mean volume (Bld) [Entitic vol] 10.1 fL 9.5 - 13.5 fL [facility] # 0.2 [facility] PLT 443 [facility] TB RBC 3.86 Low [facility] TBH WBC 13.3 High [facility] Urinalysis macro (dipstick) panel (U)on 03-22-2023 Bilirubin, UA Negative Negative - 4(70) +++ mg/dL [facility] Blood, UA Negative Negative - 50 Edward/mcL [facility] Clarity, UA Cloudy [facility] Color, UA Yellow [facility] Glucose, UA Negative Negative - 2000(110) ++++ mg/dL [facility] Interpretation and review of laboratory results Abnormal [facility] Ketones, UA Positive Negative - 160(16) ++++ mg/dL [facility] Comment on above: trace Leukocytes, UA Positive Negative - 500+++ Laila/mcL [facility] Comment on above: small Nitrite, UA Negative Negative - Positive [facility] pH, UA 6.0 5 - 9 [facility] e Protein, UA Positive Negative - 2000(20) ++++ mg/dL [facility] Comment on above: 30 mg Spec Grav, UA 1.030 1 - 1.03 [facility] Urobilinogen, UA 0.2 0.2 - 12 mg/dL [facility] Phone Message/Callon 022 Phone Message/Call - From: Hattie Bhatti LPN ([facility] [employer] [place] ([facility])) To: Rc HUFFMAN, Awais Bryant MD; Sent: 12/03/2021 14:50:03 EDT Subject: General Message Caller Name: Cinthia, Pharmacy; Caller Number: [phone] per pharmacist, Gentamicin Opth ointment is not available, they do have Erythromycin ointment or Maxitral ointment - From: Awais Tatum MD To: [facility] ([facility]); Sent: 12/03/2021 15:03:07 EDT Subject: Med Management Caller Name: Cinthia, Pharmacy; Caller Number: [phone] Submitted: Order:erythromycin ophthalmic (erythromycin 0.5% ophthalmic ointment) 1 yessenia OPTH QID Qty: 3.5 gm Duration: 5 day(s) Refills: 0 Substitutions Allowed Route To Pharmacy - [facility] Signed by Awais Tatum MD 12/03/2021 15:02:00 EDT Submitted: Discontinue:gentamic in ophthalmic (gentamicin 0.3% ophthalmic ointment) Signed by Awais Tatum MD 12/03/2021 15:02:00 EDT [facility] Phone Message/Call - From: Izabella Cosby ([employer] ([facility])) To: Awais Tatum MD, MD; [facility] Sent: 12/03/2021 09:00:10 EDT Subject: General Message Caller Name: MARYSE IAN SPENCER; Caller Number: H , M Patient called requesting an appointment with you. She said her right eye is red and irritated. Patient denies any itching or green matter but is concerned of pink eye due to having an . Your schedule is full but wondering if you wanted to work her in somewhere. Please advise. - From: Awais Tatum MD To: [employer] ([facility]); Sent: 12/03/2021 09:01:20 EDT Subject: RE: General Message Caller Name: IAN SERRA; Caller Number: H , M [phone] Patient notified and placed on schedule [facility] CBC AUTO DIFFon 08-20-2021 BASO # 0.1 103/ul Normal 0.0-0.1 [facility] Comment on above: Performed By: #### C BC #### [facility] [address] [address] [address] Kailash Esquivel Basophils/100 WBC (Bld) 0.5 % Normal 0.2-2.0 [facility] Comment on above: Performed By: #### C BC #### [facility] [address] [address] [address] Kailash Esquivel EO # 0.5 103/ul Normal 0.0-0.7 [facility] Comment on above: Performed By: #### C BC #### [facility] [address] [address] [address] Kailash Esquivel Eosinophils/100 WBC (Bld) 2.7 % Normal 0.9-7.0 [facility] Comment on above: Performed By: #### C BC #### [facility] [address] [address] [address] Kailash Esquivel Erythrocyte distribution width (RBC) [Ratio] 14.7 % Normal 11.0-15.0 [facility] Comment on above: Performed By: #### C BC #### [facility] [address] [place] [address] Dr. Kailash Esquivel Hematocrit (Bld) [Volume fraction] 24.5 % Critically low 36.0-48.0 [facility] Comment on above: Performed By: #### C BC #### [facility] [address] [place] [address] Dr. Kailash Esquivel Hemoglobin (Bld) [Mass/Vol] 7.7 g/dL Critically low 12.0-16.0 [facility] Comment on above: Result Comment: Post Performed By: #### C BC #### [facility] [address] [address] [address] Kailash Esquivel IG # 0.31 10e3/ul Critically high 0.00-0.03 [facility] Comment on above: Performed By: #### C BC #### [facility] [address] [address] [address] Kailash Esquivel IG % 1.7 % Critically high 0.0-0.5 [facility] Comment on above: Performed By: #### C BC #### [facility] [address] [address] [address] Kailash Esquivel LYMPH # 2.3 103/ul Normal 1.2-3.8 [facility] Comment on above: Performed By: #### C BC #### [facility] [address] [address] [address] Kailash Esquivel Lymphocytes/100 WBC (Bld) 12.6 % Critically low 20.5-60.0 [facility] Comment on above: Performed By: #### C BC #### [facility] [address] [address] [address] Kailash Esquivel MANUAL DIFF REQ NO Normal [facility] Comment on above: Performed By: #### C BC #### [facility] [address] [place] [address] Dr. Kailash Esquivel MCH (RBC) [Entitic mass] 26.7 pg Normal 26.7-34.0 [facility] Comment on above: Performed By: #### C BC #### [facility] [address] [place] [address] Dr. Kailash Esquivel MCHC (RBC) [Mass/Vol] 31.4 g/dL Normal 29.9-35.2 [facility] Comment on above: Performed By: #### C BC #### [facility] [address] [place] [address] Dr. Kailash Esquivel MCV (RBC) [Entitic vol] 85.1 fL Normal 81.0-99.0 [facility] Comment on above: Performed By: #### C BC #### [facility] [address] [place] [address] Dr. Kailash Esquivel MONO # 1.6 103/ul Critically high 0.3-0.8 [facility] Comment on above: Performed By: #### C BC #### [facility] [address] [place] [address] Dr. Kailash Esquivel Monocytes/100 WBC (Bld) 8.7 % Normal 1.7-12.[address] [facility] Comment on above: Performed By: #### C BC #### [facility] [address] [place] [address] Dr. Kailash Esquivel NEUT # 13.5 103/ul Critically high 1.4-6.5 [facility] Comment on above: Performed By: #### C BC #### [facility] [address] [address] [address] Kailash Esquivel Neutrophils/100 WBC (Bld) 73.8 % Normal 43.0-75.0 [facility] Comment on above: Performed By: #### C BC #### [facility] [address] [address] [address] Kailash Esquivel Platelet mean volume (Bld) [Entitic vol] 9.6 fL Normal 9.5-13.5 [facility] Comment on above: Performed By: #### C BC #### [facility] [address] [address] [address] Kailash Esquivel PLT 493 103/ul Critically high 150-450 [facility] Comment on above: Performed By: #### C BC #### [facility] [address] [place] [address] Dr. Kailash Esquivel RBC 2.88 106/ul Critically low 4.20-5.40 [facility] Comment on above: Performed By: #### C BC #### [facility] [address] [place] [address] Dr. Kailash Esquivel WBC 18.3 103/ul Critically high 4.0-11.0 [facility] Comment on above: Performed By: #### C BC #### [facility] [address] [place] [address] Dr. Kailash Esquivel CBC AUTO DIFFon 08-17-2021 BASO # 0.1 103/ul Normal 0.0-0.1 [facility] Comment on above: Performed By: #### D RUGRPD #### [facility] [address] [place] [address] Dr. Kailash Esquivel Basophils/100 WBC (Bld) 0.4 % Normal 0.2-2.[address] [facility] Comment on above: Performed By: #### D RUGRPD #### [facility] [address] [place] [address] Dr. Kailash Esquivel EO # 0.4 103/ul Normal 0.0-0.7 [facility] Comment on above: Performed By: #### D RUGRPD #### [facility] [address] [address] [address] Kailash Esquivel Eosinophils/100 WBC (Bld) 2.3 % Normal 0.9-7.0 [facility] Comment on above: Performed By: #### D RUGRPD #### [facility] [address] [place] [address] Dr. Kailash Esquivel Erythrocyte distribution width (RBC) [Ratio] 14.5 % Normal 11.0-15.0 [facility] Comment on above: Performed By: #### D RUGRPD #### [facility] [address] [place] [address] Dr. Kailash Esquivel Hematocrit (Bld) [Volume fraction] 30.5 % Critically low 36.0-48.0 [facility] Comment on above: Performed By: #### D RUGRPD #### [facility] [address] [place] [address] Dr. Kailash Esquivel Hemoglobin (Bld) [Mass/Vol] 9.8 g/dL Critically low 12.0-16.0 [facility] Comment on above: Performed By: #### D RUGRPD #### [facility] [address] [place] [address] Dr. Kailash Esquivel IG # 0.33 10e3/ul Critically high 0.00-0.03 [facility] Comment on above: Performed By: #### D RUGRPD #### [facility] [address] [place] [address] Dr. Kailash Esquivel IG % 2.1 % Critically high 0.0-0.5 [facility] Comment on above: Performed By: #### D RUGRPD #### [facility] [address] [place] [address] Dr. Kailash Esquivel LYMPH # 1.8 103/ul Normal 1.2-3.8 [facility] Comment on above: Performed By: #### D RUGRPD #### [facility] [address] [place] [address] Dr. Kailash Esquivel Lymphocytes/100 WBC (Bld) 11.3 % Critically low 20.5-60.0 [facility] Comment on above: Performed By: #### D RUGRPD #### [facility] [address] [place] [address] Dr. Kailash Esquivel MANUAL DIFF REQ NO Normal [facility] Comment on above: Performed By: #### D RUGRPD #### [facility] [address] [place] [address] Dr. Kailash Esquivel MCH (RBC) [Entitic mass] 27.2 pg Normal 26.7-34.0 [facility] Comment on above: Performed By: #### D RUGRPD #### [facility] [address] [place] [address] Dr. Kailash Esquivel MCHC (RBC) [Mass/Vol] 32.1 g/dL Normal 29.9-35.2 [facility] Comment on above: Performed By: #### D RUGRPD #### [facility] [address] [place] [address] Dr. Kailash Esquivel MCV (RBC) [Entitic vol] 84.7 fL Normal 81.0-99.0 [facility] Comment on above: Performed By: #### D RUGRPD #### [facility] [address] [place] [address] Dr. Kailash Esquivel MONO # 1.0 103/ul Critically high 0.3-0.8 [facility] Comment on above: Performed By: #### D RUGRPD #### [facility] [address] [place] [address] Dr. Kailash Esquivel Monocytes/100 WBC (Bld) 6.0 % Normal 1.7-12.[address] [facility] Comment on above: Performed By: #### D RUGRPD #### [facility] [address] [place] [address] Dr. Kailash Esquivel NEUT # 12.4 103/ul Critically high 1.4-6.5 [facility] Comment on above: Performed By: #### D RUGRPD #### [facility] [address] [place] [address] Dr. Kailash Esquivel Neutrophils/100 WBC (Bld) 77.9 % Critically high 43.0-75.0 [facility] Comment on above: Performed By: #### D RUGRPD #### [facility] [address] [address] [address] Kailash Esquivel Platelet mean volume (Bld) [Entitic vol] 9.3 fL Critically low 9.5-13.5 [facility] Comment on above: Performed By: #### D RUGRPD #### [facility] [address] [address] [address] Kailash Esquivel PLT 611 103/ul Critically high 150-450 [facility] Comment on above: Performed By: #### D RUGRPD #### [facility] [address] [address] [address] Kailash Esquivel RBC 3.60 106/ul Critically low 4.20-5.40 [facility] Comment on above: Performed By: #### D RUGRPD #### [facility] [address] [address] [address] Kailash Esquivel WBC 15.9 103/ul Critically high 4.0-11.0 [facility] Comment on above: Performed By: #### D RUGRPD #### [facility] [address] [address] [address] Kailash Esquivel [facility]07 SARS-CoV-2 (COVID-19) RNA CHRISTOPHER+probe Ql (Unsp spec) Not detected Normal NOT DETECTED [facility] Comment on above: Result Comment: When diagnostic [...] for this test is supported by the [place] of [employer] and Human Service's declaration that [...] used). Performed By: #### C VDTBH #### [facility] [address] [place] [address] Dr. Kailash Esquivel DRUG SCREEN RAPID (URINE)on 08-17-2021 AMP Negative Normal NEGATIVE [facility] Comment on above: Performed By: #### D RUGRPD #### [facility] [address] [place] [address] Dr. Kailash Esquivel BAR Negative Normal NEGATIVE [facility] Comment on above: Performed By: #### D RUGRPD #### [facility] [address] [place] [address] Dr. Kailash Esquivel BUP Negative Normal NEGATIVE [facility] Comment on above: Performed By: #### D RUGRPD #### [facility] [address] [place] [address] Dr. Kailash Esquivel BZO Negative Normal NEGATIVE [facility] Comment on above: Performed By: #### D RUGRPD #### [facility] [address] [place] [address] Dr. Kailash Esquivel DIMA Negative Normal NEGATIVE [facility] Comment on above: Performed By: #### D RUGRPD #### [facility] [address] [place] [address] Dr. Kailash Esquivel CUT-OFFS SEE BELOW Normal [facility] Comment on above: Result Comment: AMP [...] ng/mL Performed By: #### D RUGRPD #### [facility] [address] [place] [address] Dr. Kailash Esquivel DRUG CUT HEADER DRUG CLASS TEST SYSTEM CUT-OFF CONCENTRATIONS ARE FOLLOWS: Normal [facility] Comment on above: Performed By: #### D RUGRPD #### [facility] [address] [place] [address] Dr. Kailash Esquivel mAMP Negative Normal NEGATIVE [facility] Comment on above: Performed By: #### D RUGRPD #### [facility] [address] [place] [address] Dr. Kailash Esquivel MTD Negative Normal NEGATIVE [facility] Comment on above: Performed By: #### D RUGRPD #### [facility] [address] [place] [address] Dr. Kailash Esquivel OPI Negative Normal NEGATIVE [facility] Comment on above: Performed By: #### D RUGRPD #### [facility] [address] [place] [address] Dr. Kailash Esquivel OXY Negative Normal NEGATIVE [facility] Comment on above: Performed By: #### D RUGRPD #### [facility] [address] [place] [address] Dr. Kailash Esquivel PCP Negative Normal NEGATIVE [facility] Comment on above: Performed By: #### D RUGRPD #### [facility] [address] [place] [address] Dr. Kailash Esquivel PPX Negative Normal NEGATIVE [facility] Comment on above: Performed By: #### D RUGRPD #### [facility] [address] [place] [address] Dr. Kailash Esquivel TCA Negative Normal NEGATIVE [facility] Comment on above: Performed By: #### D RUGRPD #### [facility] [address] [place] [address] Dr. Kailash Esquivel THC Negative Normal NEGATIVE [facility] Comment on above: Performed By: #### D RUGRPD #### [facility] [address] [place] [address] Dr. Kailash Esquivel TYPE AND SCREENon 08-17-2021 TYPE AND SCREEN Negative Normal [facility] Comment on above: Performed By: #### D RUGRPD #### [facility] [address] [place] [address] Dr. Kailash Esquivel US PREG BIOPHY W [...] biophysical profile score 8.0. Electronically authenticated by: EJNNY MONTELONGO Date: 2021-08-12 16:[address] [facility] GROUP B STREP CULTUREon 07-10 S. agalactiae Ag Ql (Unsp spec) Culture Observations: NEGATIVE FOR GROUP B STREPTOCOCCUS. Normal [facility] Comment on above: Performed By: #### D RUGRPD #### [facility] [address] [place] [address] Dr. Kailash Esquivel US PREG BIOPHY W [...] CESAR LORENZANA Date: 2021-08-05 16:[address] [facility] US PREG GROWTHon 08-05-2021 US PREG [...] CESAR LORENZANA Date: 2021-08-05 16:[address] [facility] US PREG BIOPHY W NON STRESSo n [...] LALO LAWRENCE Date: 2021-07-30 20:[address] [facility] BILE ACIDS TOTALon 2 Bile Acids 2.4 umol/L Normal 0.0-10.0 [facility] Comment on above: Performed By: #### B ILEACD #### [facility] [address] [place] [address] Dr. Kailash Jensen 07-22-2021 AST [Catalytic activity/Vol] 19 U/L Normal 15-37 [facility] Comment on above: Performed By: #### A ST, ALT #### [facility] [address] [place], [place] [address] Dr. Kailash Esquivel [facility] 07-22-2021 ALT [Catalytic activity/Vol] 30 U/L Normal 14-59 [facility] Comment on above: Performed By: #### A ST, ALT #### [facility] [address] [place] [address] Dr. Kailash Esquivel BILE ACIDS TOTALon Bile Acids 6.8 umol/L Normal 0.0-10.0 [facility] Comment on above: Performed By: #### D RUGRPD #### [facility] [address] [place] [address] Dr. Kailash Esuqivel [facility] 06-25-2021 AST [Catalytic activity/Vol] 14 U/L Critically low 15-37 [facility] Comment on above: Performed By: #### A ST, ALT #### [facility] [address] [place] [address] Dr. Kailash Esquivel [facility] 06-25-2021 ALT [Catalytic activity/Vol] 25 U/L Normal 14-59 [facility] Comment on above: Performed By: #### A ST, ALT #### [facility] [address] [place] [address] Dr. Kailash Esquivel GTT 3 HR PREGon 06-18-2021 Glucose [Mass/Vol] 75 mg/dL Normal 74-106 [facility] Comment on above: Performed By: #### G TT3P #### [facility] [address] [place] [address] Dr. Kailash Esquivel Glucose [Mass/Vol] 163 mg/dL Normal [facility] Comment on above: Performed By: #### G TT3P #### [facility] [address] [place] [address] Dr. Kailash Esquivel Glucose [Mass/Vol] 151 mg/dL Normal [facility] Comment on above: Performed By: #### G TT3P #### [facility] [address] [address] [address] Kailash Esquivel Glucose [Mass/Vol] 96 mg/dL Normal [facility] Comment on above: Performed By: #### G TT3P #### [facility] [address] [place] [address] Dr. Kailash Esquivel US PREG GROWTHon 06-18-2021 [...] by: CESAR LORENZANA Date: 2021-06-18 07:44 Normal [facility] GLUCOSE - 1HRon 06-09-2021 Glucose [Mass/Vol] 140 mg/dL Critically high 74-106 [facility] Comment on above: Performed By: #### G LU1HR #### [facility] [address] [place] [address] Dr. Kailash Esquivel HEMOGRAM AND PLATELon 2021 Hematocrit (Bld) [Volume fraction] 35.4 % Critically low 36.0-48.0 [facility] Comment on above: Performed By: #### D RUGRPD #### [facility] [address] [place] [address] Dr. Kailash Esquivel Hemoglobin (Bld) [Mass/Vol] 11.5 g/dL Critically low 12.0-16.0 [facility] Comment on above: Performed By: #### D RUGRPD #### [facility] [address] [address] [address] Kailash Esquivel MCH (RBC) [Entitic mass] 29.6 pg Normal 26.7-34.0 [facility] Comment on above: Performed By: #### D RUGRPD #### [facility] [address] [address] [address] Kailash Esquivel MCHC (RBC) [Mass/Vol] 32.5 g/dL Normal 29.9-35.[address] [facility] Comment on above: Performed By: #### D RUGRPD #### [facility] [address] [place] [address] Dr. Kailash Esquivel MCV (RBC) [Entitic vol] 91.0 fL Normal 81.0-99.0 [facility] Comment on above: Performed By: #### D RUGRPD #### [facility] [address] [place] [address] Dr. Kailash Esquivel PLT 458 103/ul Critically high 150-450 [facility] Comment on above: Performed By: #### D RUGRPD #### [facility] [address] [place] [address] Dr. Kailash Esquivel RBC 3.89 106/ul Critically low 4.20-5.40 [facility] Comment on above: Performed By: #### D RUGRPD #### [facility] [address] [place] [address] Dr. Kailash Esquivel WBC 17.8 103/ul Critically high 4.0-11.0 [facility] Comment on above: Performed By: #### D RUGRPD #### [facility] [address] [place] [address] Dr. Kailash Esquivel Vital Signs Date Time Vital Sign Value Performing Clinician Mehnaz hernandez 03-22-2023 09:06-0500 Body weight 96.62 kg Magdalena Suárez [employer] Work Phone: [facility] 03-22-2023 09:06-0500 Diastolic blood pressure 70 mm[Hg] Magdalena Jose Armando DO Work Phone: [facility] 03-22-2023 09:06-0500 Systolic blood pressure 114 mm[Hg] Magdalena Jose Armando DO Work Phone: [facility] Encounters Encounter Date Encounter Type Care Provider Facility Start: 03-22-2023 Clinisync Result Encounter Magdalena Jose Armando DO Work Phone: [facility] Unsolicited Start: 03-22-2023 Clinisync Result Encounter Magdalena Jose Armando DO Work Phone: [facility] Unsolicited Start: 03-22-2023 End: 03-22-2023 ambulatory MAGDALENA JOSE ARMANDO Not Available Start: 03-22-2023 End: 03-22-2023 flow sheet Magdalena Jose Armando DO Work Phone: [facility] Comment on above: Third trimester preg giancarlo Start: 03-15-2023 End: 03-15-2023 ambulatory MAGDALENA JOSE ARMANDO Not Available Start: 03-08-2023 End: 03-08-2023 ambulatory MAGDALENA JOSE ARMANDO Not Available Start: 02-17-2023 End: 02-17-2023 ambulatory AGNIESZKA MATT Not Available Start: 02-02-2023 End: 02-02-2023 ambulatory MAGDALENA JOSE ARMANDO Not Available Start: 01-20-2023 End: 01-20-2023 ambulatory AGNIESZKA MATT Not Available Start: 01-06-2023 End: 01-06-2023 ambulatory MAGDALENA JOSE ARMANDO Not Available Start: 12-03-2021 End: 12-04-2021 ambulatory Awais Tatum Facility:[facility] rosalio Start: 09-15-2021 End: 09-15-2021 ambulatory NONE LISTED REQUEST Facility: Start: 08-30-2021 End: 09-08-2021 ambulatory NONE LISTED REQUEST Facility: Start: 2021 End: 2021 ambulatory NONE LISTED REQUEST Facility: Start: 08-21-2021 End: 08-21-[address] ELIAS MARKER . Facility:[facility] Start: 08-17-2021 End: 08-20-2021 Evaluation and management of inpatient DR MAGDALENA SUÁREZ . Facility:[facility] Start: 08-17-[address] MAGDALENA SUÁREZ . Facili ty:[facility] Start: 08-12-2021 End: 08-12-[address] YANIRA ZAMAN . Facility:[facility] Start: 08-06-2021 End: 08-06-[address] MAGDALENA SUÁREZ . Facility:[facility] Start: 08-05-2021 End: 08-05-[address] CESAR LORENZANA Facility:[facility] Start: 07-30-2021 End: 07-30-[address] MAGDALENA SUÁREZ . Facility:[facility] Start: 07-22-2021 End: 07-23-[address] MAGDALENA SUÁREZ . Facility:[facility] Start: 06-25-2021 End: 06-26-[address] MAGDALENA SUÁREZ . Facility:[facility] Start: 06-18-2021 End: 06-19-[address] CESAR LORENZANA Facility:[facility] Start: 06-09-2021 End: 06-10-[address] MAGDALENA SUÁREZ . Facility: Procedures Date Procedure Procedure Detail Performing Clinician Start: 03-22-2023 ALL CBC WITH AUTO DIFF Magdalena Suárez DO Work Phone: Start: 03-22-2023 Urnls dip stick/tabl et rgnt non-auto w/o micrscp Magdalena Suárez DO Work Phone: Start: 08-19-2021 Delivery of Products of Conception, External Approach NONE LISTED REQUEST Start: 08-18-2021 Drainage of Amniotic Fluid, Therapeutic from Products of Conception, Via Natural or Artificial Opening DR NONE LISTED REQUEST Start: 08-17-2021 Introduction of Horm one into Female Reproductive, Via Natural or Artificial Opening NONE LISTED REQUEST Plan of Treatment Date Care Activity Detail Author Start: 03-30-2023 End: 03-30-2023 Patient encounter procedure 03/30/2023 10:00 AM EST Routine [facility] [address] [place] [id number] Magdalena Suárez DO [address] [place] [address] [facility] Payers Date Payer Category Payer Unknown BCBS BCBS [id number] 2021-Present [phone] [address] [place] [address] [id number] 1997 Unknown [id number] [id number]8 1997 Unknown [id number] 2.16.840.1.277090.3.579.2.593 1997 Unknown [id number] 2.16.840.1.715505.3.579.2.593 1997 Unknown [id number] 2.16.840.1.176128.3.579.2.593 1997 Unknown [id number] 2.16.840.1.059449.3.579.2.593 1997 Unknown [id number] 2.16.840.1.478149.3.579.2.593 1997 Unknown [id number] 2.16.840.1.795682.3.579.2.593 1997 Unknown [id number] 2.16.840.1.004676.3.579.2.593 1997 Unknown [id number] 2.16.840.1.114205.3.579.2.593 1997 Unknown [id number] 2.16.840.1.983307.3.579.2.593 1997 Unknown [id number] 2.16.840.1.719348.3.579.2.593 1997 Unknown [id number] 2.16.840.1.938674.3.579.2.593 1997 Unknown [id number] 2.16.840.1.398254.3.579.2.593 1997 Unknown [id number] 2.16.840.1.500579.3.579.2.593 1997 Unknown [id number] 2.16.840.1.111063.3.579.2.593 1997 Unknown [id number] 2.16.840.1.737311.3.579.2.1259 1997 Unknown [id number] 2.16.840.1.738798.3.579.2.1259 1997 Unknown [id number] 2.16.840.1.385910.3.579.2.1259 1997 Unknown [id number] 2.16.840.1.258997.3.579.2.9 1997 Unknown [id number] 2.16.840.1.479869.3.579.2.9 1997 Unknown [id number] 2.16.840.1.598804.3.579.2.9 1997 Unknown [id number] 2.16.840.1.119635.3.579.2.1259 1959 Unknown [id number] Social History Date Type Detail Facility Start: 10-01-2022 Tobacco smoking stat [facility] Never smoked tobacco [facility] Start: 03-22-2023 Alcohol intake Lifetime non-d feliciano (finding) [facility] Start: 10-08-2022 History of Social function [facility] Start: 10-08-2022 Tobacco use panel [facility] Start: 10-01-2022 Alcohol Comment Caffeine: occasional [facility] Start: 07-19-2022 [facility] Start: 1997 Sex Assigned At Female [facility] Start: 09-09-2022 Gender identity Identifies as female gender (finding) [facility] History of Present illness Narrative 03-22-2023 Marhta Mark LPN - 03/22/2023 9:00 AM EST Note Date & Type Note Facility 03-22-2023 History of Presen t illness Narrative Reason for Appointment: Patient ID: Ian Serra is a 27 y.o. female who presents for Routine Visit Patient presents today for Return OB appointment. Current Medications: currently has no medications in their medication list. Medical History: Active Ambulatory Problems Diagnosis Date Noted No Active Ambulatory Problems Resolved Ambulatory Problems Diagnosis Date Noted No Resolved Ambulatory Problems No Additional Past Medical History Family History Problem Relation Name Age of Onset Rheum arthritis Mother Thyroid disease Mother Thyroid disease Sister Breast cancer Maternal Grandmother Rectal cancer Maternal Grandmother Rectal cancer Other mat grt uncle Social History Tobacco Use Smoking status: Never Smokeless tobacco: Not on file Substance Use Topics Alcohol use: Never Comment: Caffeine: occasional Drug use: Never Past Surgical History: Procedure Laterality Date CYST REMOVAL No Known Allergies Review of Systems: Review of Systems Objective OBGyn Exam Vitals: There is no height or weight on file to calculate BMI. BP: 114/70 No LMP recorded (lmp unknown). Patient is . Assessment/Plan Encounter Diagnosis Name Primary? Third trimester Patient presents today for a routine obstetrics appointment. Patient is currently 37w1d . Patient states she is doing well but has complaints of being tired due to current . Patient has verbalizes frequent movement. labor precautions was discussed/given and patient was instructed to perform kick counts three times a day. Pt having growth today. Follow Up: Patient is to return to office in 1 week for routine OB appointment. Documented by Martha Mark LPN on behalf of: Magdalena Suárez DO documented in this encounter [facility] Evaluation note Note Date & Type Note Facility Evaluation note Diagnosis Third trimester state, incidental documented in this encounter [facility] Summary Purpose Family History No Family History Records FoundNo Family History Records FoundNo Family History Records Found Advance Directives No Advanced Directives Records FoundNo Advanced Directives Records FoundNo Advanced Directives Records Found Additional Source Comments INFORMATION SOURCE (unrecogn ized section and content) DATE CREATED AUTHOR 12/04/2021 [facility] DATE CREATED AUTHOR AUTHOR'S ORGANIZ ATION [facility]02/2022 [facility] DATE CREATED AUTHOR AUTHOR'S ORGANIZ ATION 03/23/2023 [facility] EPIC Reason for Visit (unrecogniz ed section and content) Reason Comments Routine Visit FOR RECORDS PERTAINING TO PATIENTS WHO ARE [...] BE BASED ON THE PRIMARY CLINICAL RECORDS. [facility] [employer] [facility]. provides no warranty or guarantee of the accuracy or completeness of information in this document.
[2023-04-04 05:35] LABS: Hematocrit 32.3 % (36.0-48.0); Hemoglobin 10.1 g/dL (12.0-16.0); Mean Corpuscular HGB Conc 31.3 g/dL (29.9-35.2); Mean Corpuscular Hemoglobin 25.6 pg (26.7-34.0); Mean Platelet Volume 10.1 fL (9.5-13.5); Platelet Count 448 10^3/uL (150-450); Red Blood Count 3.94 10^6/uL (4.20-5.40); Red Cell Distribution Width 14.7 % (11.0-15.0); White Blood Count 14.9 10^3/uL (4.0-11.0)
[2023-04-04 05:48] LABS: Amphetamine Screen Urine NEGATIVE (NEGATIVE); Barbiturates Screen Urine NEGATIVE (NEGATIVE); Benzodiazepines Screen Urine NEGATIVE (NEGATIVE); Buprenorphine Screen Urine NEGATIVE (NEGATIVE); Cannabinoid Screen Urine NEGATIVE (NEGATIVE); Cocaine Screen Urine NEGATIVE (NEGATIVE); Methadone Screen Urine NEGATIVE (NEGATIVE); Methamphetamines Screen Urine NEGATIVE (NEGATIVE); Opiate Screen Urine NEGATIVE (NEGATIVE); Oxycodone Screen Urine NEGATIVE (NEGATIVE); Phencyclidine Screen Urine NEGATIVE (NEGATIVE); Tricyclic Antidepressant Urine NEGATIVE (NEGATIVE)
[2023-04-04] MEDS: OXYTOCIN/0.9 % SODIUM CHLORIDE 10 UNITS/500 ML PLAST..BAG 6 UNIT IV (06:00)
[2023-04-04] MEDS: 0.9 % SODIUM CHLORIDE 1,000 ML 125 ML IV ×3 (06:00→14:27)
[2023-04-04] MEDS: ROPIVACAINE HCL/PF 400 MG/200 ML PREMIX 6 MG EPIDURAL (10:46)
--- NOTE | 2023-04-04 17:38 | PM.OBPRCVD ---
Procedure Induction method: per pitocin protocol Delivery augmentation: rupture of membranes and pitocin Delivery monitor: external FHT and external uterine Route of delivery: L&D Laceration Description: periurethral - 1st degree and perineal - 1st degree Delivery repair: Vicryl Estimated blood loss (mL): 575 Anesthesia type: Epidural Disposition: floor Infant Delivery date: 04/04/23 Gender: female presentation: vertex Placental delivery description: Spontaneous cord description: 3 Vessels
[2023-04-04] MEDS: IBUPROFEN 600 MG TABLET PO (18:21)
[2023-04-04] MEDS: GLYCERIN/WITCH HAZEL PADS 1 PAD TOPICAL (18:22)
[2023-04-04] MEDS: BENZOCAINE/MENTHOL 85 GRAM SPRAY BOTTLE 1 APPLIC TOPICAL (18:22)
[2023-04-05] VITALS (7 sets, daily range): BP systolic 117–123; BP diastolic 68–85; PULSE 70–93; RESP 16; TEMP 36.5–36.9
[2023-04-05] MEDS: IBUPROFEN 600 MG TABLET PO ×3 (00:21→21:57)
[2023-04-05 06:02] LABS: Basophils Absolute Auto 0.1 10^3/uL (0.0-0.1); Basophils Percent Auto 0.5 % (0.2-2.0); Eosinophils Absolute Auto 0.2 10^3/uL (0.0-0.7); Eosinophils Percent Auto 1.3 % (0.9-7.0); Hemoglobin 8.7 g/dL (12.0-16.0); Immature Granulocytes Abs Auto 0.28 10^3/uL (0.00-0.03); Immature Granulocytes Pct Auto 1.8 % (0.0-0.5); Lymphocytes Absolute Auto 2.5 10^3/uL (1.2-3.8); Lymphocytes Percent Auto 16.3 % (20.5-60.0); Mean Corpuscular HGB Conc 31.1 g/dL (29.9-35.2); Mean Corpuscular Hemoglobin 25.8 pg (26.7-34.0); Mean Corpuscular Volume 83.1 fL (81.0-99.0); Mean Platelet Volume 10.1 fL (9.5-13.5); Monocytes Absolute Auto 1.2 10^3/uL (0.3-0.8); Monocytes Percent Auto 7.6 % (1.7-12.0); Neutrophils Percent Auto 72.5 % (43.0-75.0); Platelet Count 336 10^3/uL (150-450); Red Blood Count 3.37 10^6/uL (4.20-5.40); Red Cell Distribution Width 14.8 % (11.0-15.0); White Blood Count 15.2 10^3/uL (4.0-11.0)
--- NOTE | 2023-04-05 08:06 | P.OBPN_ITS ---
OB - PN: Subj Subjective Patient comments: no complaints and pain well controlled Twilight status: doing well Exam Constitutional Vital Signs, click to edit/add: Last Vital Signs Temp 97.5 F L 04/04/23 23:46 Pulse 79 04/04/23 23:46 Resp 18 04/04/23 23:46 BP 120/58 04/04/23 23:46 O2 Del Method Room Air 04/04/23 23:46 Documenting provider has reviewed patient's vital signs: yes Common normals: no apparent distress Cardio Common normals: regular rate and regular rhythm GI Common normals: Normal to inspection, nondistended, normoactive bowel sounds present Extremity Common normals: no calf tenderness Results Labs Labs: Short CBC 04/05/23 Range/Units 05:56 WBC 15.2 H (4.0-11.0) 10^3/uL Hgb 8.7 L (12.0-16.0) g/dL Hct 28.0 L (36.0-48.0) % Plt Count 336 (150-450) 10^3/uL Urinary Catheter Management Urinary Catheter Management Urethral: Cath placed during this visit: yes Urethral indwelling: No Insertion date: 04/04/23 Insertion time: 11:00 OB - PN: A/P Plan - Vaginal Delivery day: 1 Plan: routine care, discharge home and follow up 6 weeks Time Spent with Patient Time: Total time spent is greater than 50% in coordination of care (as documented) at patient's floor/unit and/or counseling patient: Total time spent with greater than 50% in coordination of care (as documented) at patient's floor/unit and/or counseling patient: less than 15 minutes
[2023-04-05] MEDS: DOCUSATE SODIUM 100 MG CAPSULE PO ×2 (09:23→21:57)
--- NOTE | 2023-04-05 09:59 | PC.NURSE ---
Pt out of shower, holding skin to skin. Sig other dozing on couch. VSS and Assessment WNL. Medicated for uterine cramping rates pain 4/10. Minimal bleeding from vagina and denies perineum discomfort. Fundus firm at u/1.
[2023-04-06 01:36] VITALS: BP 123/56; PULSE 79; RESP 16; TEMP 35.6
[2023-04-06] MEDS: IBUPROFEN 600 MG TABLET PO (04:30)
--- NOTE | 2023-04-06 07:55 | PM.OBPN ---
OB - PN: Subj Subjective Patient comments: no complaints and pain well controlled [place] status: doing well Exam Constitutional Vital Signs, click to edit/add: Last Vital Signs Temp 96.1 F L 04/06/23 01:36 Pulse 79 04/06/23 01:36 Resp 16 04/06/23 01:36 BP 123/56 04/06/23 01:36 O2 Del Method Room Air 04/05/23 17:37 Documenting provider has reviewed patient's vital signs: yes Common normals: no apparent distress Respiratory Common normals: normal respiratory effort and clear to auscultation bilaterally Cardio Common normals: regular rate and regular rhythm GI Common normals: Normal to inspection, nondistended, normoactive bowel sounds present Extremity Common normals: no calf tenderness Urinary Catheter Management Urinary Catheter Management Urethral: Cath placed during this visit: yes Urethral indwelling: No Insertion date: 04/04/23 Insertion time: 11:00 OB - PN: A/P Plan - Vaginal Delivery day: 2 Plan: routine care, discharge home and follow up 6 weeks Time Spent with Patient Time: Total time spent is greater than 50% in coordination of care (as documented) at patient's floor/unit and/or counseling patient: Total time spent with greater than 50% in coordination of care (as documented) at patient's floor/unit and/or counseling patient: less than 15 minutes
[2023-04-06 09:00] VITALS: BP 130/73; PULSE 111; RESP 16; TEMP 36.8
[2023-04-06 09:07] VITALS: BP 130/73; PULSE 111
[2023-04-06] MEDS: DOCUSATE SODIUM 100 MG CAPSULE PO (09:10)
== END 2023-04-06 11:50 | disposition home or self-care (01) | DRG 807 ==
PROVIDERS: Admitting Provider Obstetrics & Gynecology; Visit Provider Obstetrics & Gynecology
DX: O70.0 First degree perineal laceration during delivery (principal); Z37.0 Single live birth; Z3A.39 39 weeks gestation of pregnancy
CPT/HCPCS: 36415; 51702; 59050; 59410; 80307; 85025; 85027; 86850; 86900; 86901; 96374

== ENCOUNTER 2024-06-08 11:06 | Emergency (ER) | payer SELFPAY ==
[2024-06-08 11:13] VITALS: BP 132/84; PULSE 87; TEMP 36.8; O2SAT 98; BMI 28.3
[2024-06-08] MEDS: LIDOCAINE HCL 1% 100 MG/10 ML MDV INJ (11:29)
[2024-06-08] MEDS: LIDOCAINE 2% JELLY 10 ML UR (11:29)
--- NOTE | 2024-06-08 13:31 | ED_ITS ---
HPI - Female Genitourinary General Chief complaint: Urogenital-Female Stated complaint: PAIN IN VAGINAL AREA Time Seen by Provider: 06/08/24 11:19 Source: patient Mode of arrival: walk-in History of Present Illness HPI Narrative: Is coming to the ER with a history of Bartholin cyst to her left perineal area she noted that this happened to her before and she had the surgery done by her [facility] doctor Dr. Suárez, the patient mentioned that she has been having the symptoms for a week denying any fever chills or any other concerns Related Data Previous Rx's ?Medication ?Instructions ?Recorded cephalexin 500 mg capsule 500 mg PO TID 7 days #21 cap s 06/08/24 doxycycline hyclate 100 mg tablet 100 mg PO BID #14 ta bs 06/08/24 Allergies Allergy/AdvReac Type Severity Reaction Status Date / Time No Known Drug Allergies Allergy Verified 09/26/22 08:05 Review of Systems ROS Status of ROS 10 or more systems reviewed and unremark able except as noted in history and below PFSH PFS Medical History (Updated 06/08/24 @ 11:39 by Violetta Phelps MD) Cholestasis during ?O26.619 - Liver and biliary tract disorders in , unspecified trimester (ICD-10) ?K83.1 - Obstruction of bile duct (ICD-10) Family History (Updated 04/04/23 @ 05:36 by Benja Barrera) Mother Family history of hypertension Grandfather Family history of cancer Grandmother Family history of cancer Social History (Updated 04/04/23 @ 05:39 by Benja Barrera) Within the past year, how often did you have a drink containing alcohol: monthly or less Within the past year, how many standard drinks containing alcohol did you have on a typical day: 1 or 2 Within the past year, how often did you have six or more drinks on one occasion: never Total score: 0 Score interpretation: A score less than 3 is consistent with normal alcohol consumption. Smoking status: Current every day smoker Non-prescribed substance use: cannabis (any form) Non-prescribed substance use details: Pt states she smoked cannabis up until 6mo of Highest level of school completed/degree received: high school graduate Little interest or pleasure in doing things: not at all Feeling down, depressed, or hopeless: not at all Exam Narrative Exam Narrative: Nurses notes and vital signs reviewed and patient is not hypoxic. General: Well-appearing and in no apparent distress. Skin: Warm, dry, no pallor noted. No rash. Head: Normocephalic, atraumatic. Neck: Supple, non-tender. Eye: Pupils are equal, round and EOMI. No scleral icterus. Ears, Nose, Mouth, and Throat: TM are clear, no nasal mucosal hypertrophy. Oral mucosa is moist, no posterior oropharynx erythema, uvula is mid-line Cardiovascular: Regular Rate and Rhythm without murmur, gallop or rub. Respiratory: No accessory muscle use or respiratory distress. Back: No midline thoracic or lumbar vertebral tenderness. No CVA tenderness Musculoskeletal: normal ROM, no calf or popliteal tenderness, no lower extremity edema/swelling GI: Abdomen is soft, non-distended. Normal bowel sounds. No masses appreciated. PERINEAL examination showed that the patient have a Bartholin cyst in the left vaginal wall that is measuring 3 cm no induration No tenderness to palpation. No rebound, guarding, or rigidity noted. Neurological: A&O x4. No cranial nerve dysfunction observed. Constitutional Vital Signs, click to edit/add: Last Vital Signs Temp 98.3 F 06/08/24 11:13 Pulse 87 06/08/24 11:13 Resp 18 06/08/24 11:13 BP 132/84 06/08/24 11:13 Pulse Ox 98 06/08/24 11:13 O2 Del Method Room Air 06/08/24 11:13 Course Vital Signs Vital signs: Vital Signs Temperature 98.3 F 06/08/24 11:13 Pulse Rate 87 06/08/24 11:13 Respiratory Rate 18 06/08/24 11:13 Blood Pressure 132/84 06/08/24 11:13 Pulse Oximetry 98 06/08/24 11:13 Oxygen Delivery Method Room Air 06/08/24 11:13 Temperature 98.3 F 06/08/24 11:13 Pulse Rate 87 06/08/24 11:13 Respiratory Rate 18 06/08/24 11:13 Blood Pressure 132/84 06/08/24 11:13 Pulse Oximetry 98 06/08/24 11:13 Oxygen Delivery Method Room Air 06/08/24 11:13 MDM - Female Genitourinary MDM Narrative Medical decision making narrative: After applying the viscous lidocaine was able to do a aspiration with a large bore needle 18-gauge almost of 60 cc at least of pus after which the cyst disappeared Applied some pressure Patient was instructed about warm sitz bath The patient started antibiotic doxycycline and Keflex Instructed on monitoring symptoms in case of any pain or increasing swelling or fever she is to come to the ER The patient is to follow up with primary care physician in next 2-3 days or to return to the emergency department should any of the signs or symptoms worsen or new symptoms develop. The patient agrees with the following Diagnosis and Treatment plan and the patient will be discharged home. Discharge Plan Discharge Chief Complaint: Urogenital-Female Clinical Impression: Bartholin cyst Patient Disposition: Home, Self-Care Time of Disposition Decision: 11:39 Condition: Good Prescriptions / Home Meds: New doxycycline hyclate 100 mg tablet 100 mg PO BID Qty: 14 0RF cephalexin 500 mg capsule 500 mg PO TID 7 Days Qty: 21 0RF Print Language: Djiboutian Instructions: Bartholin Cyst (ED), Sitz Bath (DC) Referrals: Physician,Non-Staff, MD [Primary Care Provider] - 1 week Discharge Date/Time: 06/08/24 11:49
== END 2024-06-08 11:49 | disposition home or self-care (01) ==
PROVIDERS: Emergency Provider Emergency Medicine
DX: N75.0 Cyst of Bartholin's gland (principal); F17.200 Nicotine dependence, unspecified, uncomplicated
CPT/HCPCS: 10160; 87070; 87075; 99284

== ENCOUNTER 2024-06-30 05:12 | Emergency (ER) | payer SELFPAY ==
--- OUTSIDE RECORDS SUMMARY | 2010-09-22 06:30 | XMS_ITS | Continuity of Care Document ---
Author Organization [facility] Address [address] [place] [address] Phone Care Team Providers Care Program Management Manager Name Role Phone Larry Valle Unavailable Unavailable [...] Copied on Encounter OFFICE/OUTPATI ENT VISIT, EST [facility], [address], [place], [id number], [place] tel:[phone] [facility] No Information Alina Salazar. [address], [place], [id number], [place]. tel:[phone] Family History Family Member Type Diagnosis Age [...]
[2024-06-30 05:17] VITALS: BP 127/76; PULSE 89; TEMP 36.7; O2SAT 99; BMI 29.2
--- OUTSIDE RECORDS SUMMARY | 2024-06-30 05:28 | XMS_ITS | Encounter Summary ---
Author Organization [facility] Address [address] [place] [address] Care Team Providers Care Aircraft Landing Gear Inspector Name Role Phone Unavailable Primary Care Provider Unavailabl e Encounter Details Date Type Department Care Team (Late st Contact Info) Description 02/17/2023 Clinisync Result Encounter [facility] External Department Unsolicited Magdalena Suárez, DO [address] [facility] [address] [place], [place] [id number] Social History Tobacco Use Types Packs/Day Years Used Date Smoking Tobacco: Never Alcohol Use Standard Drinks/Week Comments Never 0 (1 standard drink = 0.6 oz pur e alcohol) Caffeine: occasional Comments Yes Sex and Gender Information Value Date Recorded Sex Assigned at Female 09/09/2022 1:17 PM EDT Legal Sex Female 7:47 PM EDT Gender Identity Female 09/09/2022 1:17 PM EDT Sexual Orientation Not on file documented as of this encounter Plan of Treatment Not on file documented as of this encounter Procedures Procedure Name Priority Date/Time Associated Diagnosis Comments US OB GROWTH 02/17/2023 12:09 PM EST documented in this encounter Results * US OB GROWTH (02/17/2023 12:09 PM EST) Anatomical Region Laterality Modality Other 02/17/2023 12:0 9 PM EST Narrative 02/17/2023 12:12 PM EST The [address] [address] Ultrasound Report Signed Patient: MARGARITA NAGEL MR#: [id number] : 1995 Acct:[id number] Age/Sex: 27 / F ADM Date: 02/17/23 Loc: US Attending Dr: Magdalena Suárez D.O. Ordering Physician: Magdalena Suárez D.O. Date of Service: 02/17/23 Procedure(s): US OB growth Accession Number(s): [id number] cc: Magdalena Suárez D.O.; Physician,Non-Staff [place] [id number] Patient Name: MARGARITA NAGEL MRN: [id number] date: 1995 Sex: F Assigned Patient Location: US Current Patient Location: US Accession/Order Number: [id number] Exam Date: 02/17/2023 10:29 Report Date: 02/17/2023 12:09 At the request of: MAGDALENA SUÁREZ Procedure: US OB growth EXAMINATION: US OB growth HISTORY: SIZE INCONSISTENT WITH DATES COMPARISON: No relevant comparison available. FINDINGS: Heart Rate: 142.0 bpm Amniotic Fluid Volume: 16.2 cm Number: 1.0 Position: Cephalic presentation, longitudinal lie Maximum Vertical Pocket: 5.8 cm cm 2.7 cm cm 4.0 cm cm 3.8 cm cm BIOMETRY: BPD: 7.8 cm cm; 31 weeks 1 days; , 11% HC: 29.4 cmcm; 32 weeks 4 days , 16% AC: 30.1 cm cm; 34 weeks 0 days, 90% FL: 6.3 cm cm; 32 weeks 4 days; 39.3 % % EFW: 2137.0 grams, 4 lbs. 11 oz., 64% FL/AC: 20.9 FL/BPD: 80.9 HC/AC: 1.0 GESTATIONAL AGE: Age by EDC: 32 weeks 3 days BEBO by EDC: 04/11/2023 Age by US: 32 weeks 4 days BEBO by US: 04/10/2023 US/US OB growth IMPRESSION: Normal interval growth Electronically authenticated by: CESAR LORENZANA Date: 02/17/2023 12:09 Dictated By: Cesar Lorenzana M.D. Signed By: 02/17/23 1212 DD/ 1209 TD/TT: Client Onboarding Analyst: Procedure Note Radiology, Radiologist, - 02/17/2023 [place] [address] Ultrasound Report Signed Patient: MARGARITA NAGEL LMR#: [id number] : 1995Acct:[id number] Age/Sex: 27 / FADM Date: 02/17/23 Loc: US Attending Dr: Magdalena Suárez D.O. Ordering Physician: Magdalena Suárez D.O. Date of Service: 02/17/23 Procedure(s): US OB growth Accession Number(s): [id number] cc: Magdalena Suárez D.O.; Physician,Non-Staff Norma The [place] [id number] Patient Name: MARGARITA NAGEL MRN: [id number] date: 1995 Sex: F Assigned Patient Location: US Current Patient Location: US Accession/Order Number: [id number] Exam Date: 02/17/2023 10:29 Report Date: 02/17/2023 12:09 At the request of: MAGDALENA SUÁREZ Procedure: US OB growth EXAMINATION: US OB growth HISTORY: SIZE INCONSISTENT WITH DATES COMPARISON: No relevant comparison available. FINDINGS: Heart Rate: 142.0 bpm Amniotic Fluid Volume: 16.2 cm Number: 1.0 Position: Cephalic presentation, longitudinal lie Maximum Vertical Pocket: 5.8 cm cm 2.7 cm cm 4.0 cm cm 3.8 cm cm BIOMETRY: BPD: 7.8 cm cm; 31 weeks 1 days; , 11% HC: 29.4 cmcm; 32 weeks 4 days , 16% AC: 30.1 cm cm; 34 weeks 0 days, 90% FL: 6.3 cm cm; 32 weeks 4 days; 39.3 % % EFW: 2137.0 grams, 4 lbs. 11 oz., 64% FL/AC: 20.9 FL/BPD: 80.9 HC/AC: 1.0 GESTATIONAL AGE: Age by EDC: 32 weeks 3 days BEBO by EDC: 04/11/2023 Age by US: 32 weeks 4 days BEBO by US: 04/10/2023 US/US OB growth IMPRESSION: Normal interval growth Electronically authenticated by: CESAR LORENZANA Date: 02/17/2023 12:09 Dictated By: Cesar Lorenzana M.D. Signed By:02/17/23 1212 DD/ 1209 TD/TT: Client Onboarding Analyst: us Magdalena Jose Armando DO [facility] Final Result documented in this encounter Visit Diagnoses Not on filedocumented in this encounter
--- OUTSIDE RECORDS SUMMARY | 2024-06-30 05:28 | XMS_ITS | Encounter Summary ---
Author Organization [facility] Address [address] [place] [address] Care Team Providers Care Social Media Editor Name Role Phone Unavailable Primary Care Provider Unavailabl e Encounter Details Date Type Department Care Team (Late st Contact Info) Description 11/09/2022 Abstract [facility] [address] [facility] [place] [phone] Shaun Suárez, DO [address] [facility] [address] [place], [place] [phone] Social History Tobacco Use Types Packs/Day Years [...] PM EDT Sexual Orientation Not on file COVID-19 Exposure Response Date Recorded In the last 10 days, have yo u been in contact with someone who was confirmed or suspected to have Coronavirus/COVID-19? No / Unsure 11/09/2022 9:59 AM EDT documented as of this encounter Plan of Treatment Not on file documented as of this encounter Visit Diagnoses Not on filedocumented in this encounter
--- OUTSIDE RECORDS SUMMARY | 2024-06-30 05:28 | XMS_ITS | Encounter Summary ---
Author Organization [facility] Address [address] [place] [address] Care Team Providers Care Outcomes Specialist Name Role Phone Unavailable Primary Care Provider Unavailabl e Encounter Details Date Type Department Care Team (Late st Contact Info) Description 11/23/2022 Clinisync Result Encounter [facility] External Department Unsolicited Magdalena Suárez, DO [address] [facility] [address] [place], [place] [phone] Social History Tobacco Use Types Packs/Day Years [...] suspected to have Coronavirus/COVID-19? No / Unsure 11/23/2022 8:38 AM EDT documented as of this encounter Plan of Treatment Not on file documented as of this encounter Procedures Procedure Name Priority Date/Time Associated Diagnosis Comments US OB CERVICAL LENGTH 11/23/2022 10:37 AM EDT documented in this encounter Results * US OB CERVICAL LENGTH (11/23/2022 10:37 AM EDT) Anatomical Region Laterality Modality Other 11/23/2022 10:3 7 AM EDT Narrative 11/23/2022 10:37 AM EDT The [address] [address] Ultrasound Report Signed Patient: MARGARITA NAGEL MR#: [id number] : 1995 Acct:[id number] Age/Sex: 27 / F ADM Date: 11/23/22 Loc: US Attending Dr: Magdalena Suárez D.O. Ordering Physician: Magdalena Suárez D.O. Date of Service: 11/23/22 Procedure(s): US OB cervical length Accession Number(s): [id number] cc: Magdalena Suárez D.O.; Physician,Non-Staff Norma The [address] [address] Patient Name: MARGARITA NAGEL MRN: [id number] date: 1995 Sex: F Assigned Patient Location: US Current Patient Location: ED.MAIN Accession/Order Number: [id number] Exam Date: 11/23/2022 09:03 Report Date: 11/23/2022 10:37 At the request of: MAGDALENA SUÁREZ Procedure: US OB cervical length EXAMINATION: US OB anatomy HISTORY: ANATOMY COMPARISON: No relevant comparison available. TECHNIQUE: Transabdominal sonographic examination was performed for obstetrical and evaluation. FINDINGS: Number: 1 Heart Rate: 153.0 bpm H.B. /min Amniotic Fluid Volume: Subjectively normal position: Cephalic presentation, longitudinal lie Placental Location: Posterior, placental edge 4.7 cm from the internal cervical os Cervix Length: 4.2 cm , closed Normal anatomy: Lateral ventricles, cerebellum, posterior fossa, nose, lips, orbits, four-chamber heart, RVOT, LVOT, diaphragm, stomach, kidneys, abdominal cord insertion, bladder, umbilical cord arteries, three-vessel cord, spine, extremities BIOMETRY: BPD: 4.5 cm 19 weeks 3 days , 23% HC: 16.7 cm 19 weeks 3 days, 13% AC: 15.3 cm 20 weeks 3 days, 55% FL: 3.3 cm 20 weeks 2 days, 47% EFW:341.6 grams; 12 ounces, 51% FL/AC: 21.6 FL/BPD: 73.8 HC/AC: 1.1 GESTATIONAL AGE: Age by EDC: 20 weeks 1 days BEBO by EDC: 04/11/2023 Age by current US: 19 weeks 6 days BEBO by current US: 04/13/2023 US/US OB cervical length IMPRESSION: Normal anatomy scan *Reference: [facility] Practice Guideline for the performance of Obstetric Ultrasound Examinations, November 07, 2006. Electronically authenticated by: CESAR LORENZANA Date: 11/23/2022 10:37 Dictated By: Cesar Lorenzana M.D. Signed By: 11/24/22 0809 DD/ 1037 TD/TT: Veneer Jointer Helper: Procedure Note Radiology, Radiologist, MD - 11/24/2022 [place] [address] Ultrasound Report Signed Patient: MARGARITA NAGEL LMR#: [id number] : 1995Acct:[id number] Age/Sex: 27 / FADM Date: 11/23/22 Loc: US Attending Dr: Magdalena Suárez D.O. Ordering Physician: Magdalena Suárez D.O. Date of Service: 11/23/22 Procedure(s): US OB cervical length Accession Number(s): [id number] cc: Magdalena Suárez D.O.; Physician,Non-Staff Norma The [place] [address] Patient Name: MARGARITA NAGEL MRN: [facility]:[id number] date: 1995 Sex: F Assigned Patient Location: US Current Patient Location: ED.MAIN Accession/Order Number: [id number] Exam Date: 11/23/2022 09:03 Report Date: 11/23/2022 10:37 At the request of: MAGDALENA SUÁREZ Procedure: US OB cervical length EXAMINATION: US OB anatomy HISTORY: ANATOMY COMPARISON: No relevant comparison available. TECHNIQUE: Transabdominal sonographic examination was performed for obstetrical and evaluation. FINDINGS: Number: 1 Heart Rate: 153.0 bpm H.B. /min Amniotic Fluid Volume: Subjectively normal position: Cephalic presentation, longitudinal lie Placental Location: Posterior, placental edge 4.7 cm from the internal cervical os Cervix Length: 4.2 cm , closed Normal anatomy: Lateral ventricles, cerebellum, posterior fossa, nose,lips, orbits, four-chamber heart, RVOT, LVOT, diaphragm, stomach, kidneys,abdominal cord insertion, bladder, umbilical cord arteries, three-vessel cord,spine, extremities BIOMETRY: BPD: 4.5 cm 19 weeks 3 days , 23% HC: 16.7 cm 19 weeks 3 days, 13% AC: 15.3 cm 20 weeks 3 days, 55% FL: 3.3 cm 20 weeks 2 days, 47% EFW:341.6 grams; 12 ounces, 51% FL/AC: 21.6 FL/BPD: 73.8 HC/AC: 1.1 GESTATIONAL AGE: Age by EDC: 20 weeks 1 days BEBO by EDC: 04/11/2023 Age by current US: 19 weeks 6 days BEBO by current US: 04/13/2023 US/US OB cervical length IMPRESSION: Normal anatomy scan *Reference: [facility] Practice Guideline for the performance of Obstetric Ultrasound Examinations, November 07, 2006. Electronically authenticated by: CESAR LORENZANA Date: 11/23/2022 10:37 Dictated By: Cesar Lorenzana M.D. Signed By:11/24/22 0809 DD/ 1037 TD/TT: Veneer Jointer Helper: us Magdalena Suárez DO [facility] Final Result documented in this encounter Visit Diagnoses Not on filedocumented in this encounter
--- OUTSIDE RECORDS SUMMARY | 2024-06-30 05:28 | XMS_ITS | Clinical Summary ---
Author Organization [facility] Address [address] [facility] [place] [address] Care Team Providers Care Embossing Press Operator Molded Goods Name Role Phone Unavailable Primary Care Provider Unavailabl e Allergies No known active allergies Medications norethindrone (Micronor) 0.35 MG tabletIndications: Encounter for initial prescription of contraceptive pills Take 1 tablet (0.35 mg) by mouth Daily Take 1 tablet by mouth daily 28 tablet 11 4 Active Family History Medical History Relation Name Comments Breast cancer Maternal Grandmother Rectal cancer Maternal Grandmother Rheum arthritis Mother Thyroid disease Mother Rectal cancer Other mat grt uncle Thyroid disease Sister 1 Relation Name Status Comments Brother Alive Father Alive Maternal Grandmother Mother Alive Other Sister 1 Alive Sister 2 Alive Son Rob Alive Social History Tobacco Use Types Packs/Day Years Used Date Smoking Tobacco: Never Tobacco Cessation:Counseling Given: Not Answered Alcohol Use Standard Drinks/Week Comments Never 0 (1 standard drink = 0.6 oz pur e alcohol) Caffeine: occasional Comments No Sex and Gender Information Value Date Recorded Sex Assigned at Female 09/09/2022 1:17 PM EDT Legal Sex Female 7:47 PM EDT Gender Identity Female 09/09/2022 1:17 PM EDT Sexual Orientation Not on file Last Filed Vital Signs Vital Sign Reading Time Taken Comments Blood Pressure 100/60 05/18/2023 9:01 AM EDT Pulse - - Temperature - - Respiratory Rate - - Oxygen Saturation - - Inhaled Oxygen Concentration - - Weight 88.4 kg (194 lb 12.8 oz) 05/18/2023 9:01 AM EDT Height 160 cm (5' 3 ) 05/18/2023 9:01 AM EDT Body Mass Index 34.51 05/18/2023 9:01 AM EDT Plan of Treatment Not on file Insurance BS
--- OUTSIDE RECORDS SUMMARY | 2024-06-30 05:28 | XMS_ITS | Encounter Summary ---
Author Organization [facility] Address [address] [place] [address] Care Team Providers Care Crap Shooter Name Role Phone Unavailable Primary Care Provider Unavailabl e Encounter Details Date Type Department Care Team (Late st Contact Info) Description 04/04/2023 Abstract [facility] [address] [facility] [place] [phone] Shaun Suárez, DO [address] [facility] [address] [place], [place] [phone] Social History Tobacco Use Types Packs/Day Years [...]
--- OUTSIDE RECORDS SUMMARY | 2024-06-30 05:28 | XMS_ITS | Encounter Summary ---
Author Organization [facility] Address [address] [place] [address] Care Team Providers Care Firer Automatic Stoker Name Role Phone Unavailable Primary Care Provider Unavailabl e Encounter Details Date Type Department Care Team (Late st Contact Info) Description 11/23/2022 Clinisync Result Encounter [facility] External Department Unsolicited Magdalena Suárez, DO [address] [facility] [address] [place], [place] [phone] Social History Tobacco Use Types Packs/Day Years [...] Priority Date/Time Associated Diagnosis Comments US OB ANATOMY 11/23/2022 10:37 AM EDT documented in this encounter Results * US OB ANATOMY (11/23/2022 10:37 AM EDT) Anatomical Region Laterality Modality Other 11/23/2022 10:3 7 AM EDT Narrative 11/23/2022 10:37 AM EDT [address] [address] Ultrasound Report Signed Patient: MARGARITA NAGEL MR#: [id number] : 1995 Acct:[id number] Age/Sex: 27 / F ADM Date: 11/23/22 Loc: US Attending Dr: Magdalena Suárez D.O. Ordering Physician: Magdalena Suárez D.O. Date of Service: 11/23/22 Procedure(s): US OB anatomy Accession Number(s): [id number] cc: Magdalena Suárez D.O.; Physician,Non-Staff Norma [address] [address] Patient Name: MARGARITA NAGEL MRN: [id number] date: 1995 Sex: F Assigned Patient Location: US Current Patient Location: US Accession/Order Number: [id number] Exam Date: 11/23/2022 09:03 Report Date: 11/23/2022 10:37 At the request of: MAGDALENA SUÁREZ Procedure: US OB anatomy EXAMINATION: US OB anatomy HISTORY: ANATOMY COMPARISON: [...] BEBO by current US: 04/13/2023 US/US OB anatomy IMPRESSION: Normal anatomy scan *Reference: [facility] Practice Guideline for the performance of Obstetric Ultrasound Examinations, November 07, 2006. Electronically authenticated by: CESAR LORENZANA Date: 11/23/2022 10:37 Dictated By: Cesar Lorenzana M.D. Signed By: 11/23/22 1039 DD/ 1037 TD/TT: Rod Mill Operator: Procedure Note Radiology, Radiologist, MD - 11/23/2022 [place] [address] Ultrasound Report Signed Patient: MARGARITA NAGEL LMR#: [id number] : 1995Acct:[id number] Age/Sex: 27 / FADM Date: 11/23/22 Loc: US Attending Dr: Magdalena Suárez D.O. Ordering Physician: Magdalena Suárez D.O. Date of Service: 11/23/22 Procedure(s): US OB anatomy Accession Number(s): [id number] cc: Magdalena Suárez D.O.; Physician,Non-Staff Norma The [place] [id number] Patient Name: MARGARITA NAGEL MRN: [facility]:[id number] date: 1995 Sex: F Assigned Patient Location: US Current Patient Location: US Accession/Order Number: [id number] Exam Date: 11/23/2022 09:03 Report Date: 11/23/2022 10:37 At the request of: MAGDALENA SUÁREZ Procedure: US OB anatomy EXAMINATION: US OB anatomy HISTORY: ANATOMY COMPARISON: [...] BEBO by current US: 04/13/2023 US/US OB anatomy IMPRESSION: Normal anatomy scan *Reference: [facility] Practice Guideline for the performance of Obstetric Ultrasound Examinations, November 07, 2006. Electronically authenticated by: CESAR OLRENZANA Date: 11/23/2022 10:37 Dictated By: Cesar Lorenzana M.D. Signed By:11/23/22 1039 DD/ 1037 TD/TT: Rod Mill Operator: us Magdalena Suárez DO [facility] Final Result documented in this encounter Visit Diagnoses Not on filedocumented in this encounter
--- NOTE | 2024-06-30 06:05 | ED.EAR1 ---
HPI - Ear Problem General Chief complaint: Ear Stated complaint: CAN'T HEAR OUT OF RIGHT EAR Time Seen by Provider: 06/30/24 05:27 Source: patient Mode of arrival: walk-in Limitations: no limitations History of Present Illness HPI Narrative: cc - right ear pain One day ago the patient developed pain in the right ear. She said it is difficult to hear out of that ear. She said that for about one week she has had cough and coughing up this phlegm shit . No fever or chills. No lymph node pain or swelling. No GI or symptoms. Nothing taken at home for the pain yesterday or this morning. Related Data Previous Rx's ?Medication ?Instructions ?Recorded amoxicillin 875 mg tablet 875 mg PO BID #14 tabs 06/30/24 Allergies Allergy/AdvReac Type Severity Reaction Status Date / Time No Known Drug Allergies Allergy Verified 06/30/24 05:17 [facility] Medical History (Updated 06/30/24 @ 06:10 by Henri Keys) Cholestasis during ?O26.619 - Liver and biliary tract disorders in , unspecified trimester (ICD-10) ?K83.1 - Obstruction of bile duct (ICD-10) Family History (Updated 04/04/23 @ 05:36 by Benja Barrera) Mother Family history of hypertension Grandfather Family history of cancer Grandmother Family history of cancer Social History (Updated 04/04/23 @ 05:39 by Benja Barrera) Within the past year, how often did you have a drink containing alcohol: monthly or less Within the past year, how many standard drinks containing alcohol did you have on a typical day: 1 or 2 Within the past year, how often did you have six or more drinks on one occasion: never Total score: 0 Score interpretation: A score less than 3 is consistent with normal alcohol consumption. Smoking status: Current every day smoker Non-prescribed substance use: cannabis (any form) Non-prescribed substance use details: Pt states she smoked cannabis up until 6mo of Highest level of school completed/degree received: high school graduate Little interest or pleasure in doing things: not at all Feeling down, depressed, or hopeless: not at all Exam Narrative Exam Narrative: Nurses notes and vital signs reviewed and patient is not hypoxic. afebrile General: Well-appearing and in no apparent distress. Skin: Warm, dry, no pallor noted. No rash. Head: Normocephalic, atraumatic. Neck: Supple, non-tender. No cervical lymphadenopathy. Eye: Pupils are equal, round and EOMI. No scleral icterus. Ears, Nose, Mouth, and Throat: Right TM with ruptured tympanic fluid, mild bulging and injection. Left TM is clear. No nasal mucosal hypertrophy. Oral mucosa is moist Cardiovascular: Regular Rate and Rhythm without murmur, gallop or rub. Respiratory: No accessory muscle use or respiratory distress. Lungs are clear to auscultation, no wheezing, rales or rhonchi Musculoskeletal: normal ROM Neurological: A&O x4. No cranial nerve dysfunction observed. No truncal ataxia. Moves all extremities. Sensation intact. Psychiatric: Cooperative and interactive. Normal mood and affect. Constitutional Vital Signs, click to edit/add: Last Vital Signs Temp 98.1 F 06/30/24 05:17 Pulse 89 06/30/24 05:17 Resp 18 06/30/24 05:17 BP 127/76 06/30/24 05:17 Pulse Ox 99 06/30/24 05:17 O2 Del Method Room Air 06/30/24 05:17 Course Vital Signs Vital signs: Vital Signs Temperature 98.1 F 06/30/24 05:17 Pulse Rate 89 06/30/24 05:17 Respiratory Rate 18 06/30/24 05:17 Blood Pressure 127/76 06/30/24 05:17 Pulse Oximetry 99 06/30/24 05:17 Oxygen Delivery Method Room Air 06/30/24 05:17 Temperature 98.1 F 06/30/24 05:17 Pulse Rate 89 06/30/24 05:17 Respiratory Rate 18 06/30/24 05:17 Blood Pressure 127/76 06/30/24 05:17 Pulse Oximetry 99 06/30/24 05:17 Oxygen Delivery Method Room Air 06/30/24 05:17 Medical Decision Making MDM Narrative Medical decision making narrative: Pt has right otitis media, likely associated with recent URI symptoms. She was ordered to receive oral Motrin in the ED and was discharged home with prescription for oral Amoxicillin. She can see her PCP for follow up or see ENT if she worsens. Discharge Plan Discharge Chief Complaint: Ear Clinical Impression: Otitis media Patient Disposition: Home, Self-Care Time of Disposition Decision: 06:10 Prescriptions / Home Meds: New amoxicillin 875 mg tablet 875 mg PO BID Qty: 14 0RF Print Language: Fijian Instructions: Ear Infection (ED) Referrals: Physician,Non-Staff, MD [Primary Care Provider] - 1 week
[2024-06-30] MEDS: IBUPROFEN 400 MG TABLET 800 MG PO (06:15)
--- NOTE | 2024-06-30 06:18 | PC.NURSE ---
i gave this patient verbal and written discharge orders along with 1 e-script, this patient voices understanding these. at time of discharge this patient voices no concerns and shows no signs of distress
== END 2024-06-30 06:17 | disposition home or self-care (01) ==
PROVIDERS: Emergency Provider Emergency Medicine
DX: H66.91 Otitis media, unspecified, right ear (principal); H92.01 Otalgia, right ear; H91.91 Unspecified hearing loss, right ear; R05.9 Cough, unspecified
CPT/HCPCS: 99282

== ENCOUNTER 2024-07-02 11:01 | Emergency (ER) | payer SELFPAY ==
--- OUTSIDE RECORDS SUMMARY | 2010-09-22 06:30 | XMS_ITS | Continuity of Care Document ---
Author Organization [facility] Address [address] [place] [address] Phone Care Team Providers Care [employer]er Name Role Phone Larry Valle Unavailable Unavailable Procedures Procedure Date OFFICE/OUTPATIENT VISIT, EST OFFICE/OUTPATIENT VISIT, EST HEP A VACC, PED/ADOL, 2 DOSE H PAPILLOMA VACC 3 DOSE IM MENINGOCOCCAL VACCINE, IM TDAP VACCINE >7 IM Advance Directives Directive Yes / No Effective Date File Name Resuscitation Not Answered N/A N/A Life Support Not Answered N/A N/A Intubation Not Answered N/A N/A Antibiotics Not Answered N/A N/A IV Fluid Support Not Answered N/A N/A Tube Feed Not Answered N/A N/A Other Directive N/A N/A WARNING:The information contained in this section is historical and is provided for information only and does not constitute a legal document or any assurance that the information is still accurate. Please verify the information with the howard of the legal document before using it for clinical purposes. Encounters Encounter Description Practice Location Reason(s) For Visit Diagnoses Date Provider Providers Copied on Encounter OFFICE/OUTPATI ENT VISIT, EST [facility], [address], [place], [id number], [place] tel:[phone] [facility] No Information Alina Salazar. [address], [place], [id number], [place]. tel:[phone] Family History Family Member Type Diagnosis Age At Onset No Information Immunizations Vaccine Date Status Comments HPV administered Source: New Imm unization Record Hep A (ped/adol, 2 dose) administered Myrna rce: New Immunization Record Tdap administered Source: New Imm unization Record MCV4 (11-55 yrs) administered Source: New Immunization Record Payers Payer name Insurance type Covered alliance party ID Authoriza tion(s) No Information Social History Type Description Quantity Date Captured Comments Alcohol Use Details Unknown Caffeine Use Details Unknown Tobacco Use Status No Information Smoking Status No Information Sex Female Chief Complaint And Reason For Visit No Information Reason For Referral Reason For Referral No Information Plan Of Treatment Date Type Action Status Goal HPV (1st). Due on 1 due History Of Present Illness Encounter Date Complaint History Of Prese nt Illness No Information Functional Status Date Functional Assessmen t No Information Instructions Date Instruction Additional Infor mation No Information Assessments Type Assessment Date No Information Patient Care Teams Name Effective Dates (start - stop) Status Members No Information
[2024-07-02 11:06] VITALS: PULSE 88; TEMP 36.6; O2SAT 97; BMI 29.2
--- OUTSIDE RECORDS SUMMARY | 2024-07-02 11:10 | XMS_ITS | Encounter Summary ---
Author Organization [facility] Address [address] [place] [address] Care Team Providers Care Employment Security Officer Name Role Phone Unavailable Primary Care Provider Unavailabl e Encounter Details Date Type Department Care Team (Late st Contact Info) Description 02/17/2023 Clinisync Result Encounter [facility] External Department Unsolicited Magdalena Suárez, DO [address] [facility] [address] [place], [place] [phone] Social History Tobacco Use Types Packs/Day Years [...] EST Narrative 02/17/2023 12:12 PM EST The [address] [address] Ultrasound Report Signed Patient: MARGARITA NAGEL MR#: [id number] : 1995 Acct:[id number] Age/Sex: 27 / F ADM Date: 02/17/23 Loc: US Attending Dr: Magdalena Suárez D.O. Ordering Physician: Magdalena Suárez D.O. Date of Service: 02/17/23 Procedure(s): US OB growth Accession Number(s): [id number] cc: Magdalena Suárez D.O.; Physician,Non-Staff Norm[place] [id number] Patient Name: MARGARITA NAGEL MRN: [id number] date: 1995 Sex: F Assigned Patient Location: US Current Patient Location: US Accession/Order Number: [id number] Exam Date: 02/17/2023 10:29 Report Date: 02/17/2023 [...] Signed By: 02/17/23 1212 DD/ 1209 TD/TT: Scooper: Procedure Note Radiology, Radiologist, - 02/17/2023 [place] [address] Ultrasound Report Signed Patient: MARGARITA NAGEL LMR#: [id number] : 1995Acct:[id number] Age/Sex: 27 / FADM Date: 02/17/23 Loc: US Attending Dr: Magdalena Suárez D.O. Ordering Physician: Magdalena Suárez D.O. Date of Service: 02/17/23 Procedure(s): US OB growth Accession Number(s): [id number] cc: Magdalena Suárez D.O.; Physician,Non-Staff Norma The [place] [id number] Patient Name: MARGARITA NAGEL MRN: [id number] date: 1995 Sex: F Assigned Patient Location: US Current Patient Location: US Accession/Order Number: [id number] Exam Date: 02/17/2023 10:29 Report Date: 02/17/2023 [...] M.D. Signed By:02/17/23 1212 DD/ 1209 TD/TT: Scooper: us Magdalena Jose Armando DO [facility] Final Result documented in this encounter Visit Diagnoses Not on filedocumented in this encounter
--- OUTSIDE RECORDS SUMMARY | 2024-07-02 11:10 | XMS_ITS | Clinical Summary ---
Author Organization [facility] Healthcare Address [address] [facility] [place] [address] Care Team Providers Care Production Illustrator Name Role Phone Unavailable Primary Care Provider [...]
--- OUTSIDE RECORDS SUMMARY | 2024-07-02 11:10 | XMS_ITS | Encounter Summary ---
Author Organization [facility] Address [address] [place] [address] Care Team Providers Care Speech Language Pathologist Assistant Name Role Phone Unavailable Primary Care Provider Unavailabl e Encounter Details Date Type Department Care Team (Late st Contact Info) Description 04/04/2023 Abstract [facility] [address] [place] [id number] Shaun Suárez, DO [address] [facility] [address] [place], [place] [id number] Social History Tobacco Use Types Packs/Day Years [...]
--- OUTSIDE RECORDS SUMMARY | 2024-07-02 11:10 | XMS_ITS | Encounter Summary ---
Author Organization [facility] Address [address] [place] [address] Care Team Providers Care Event Sales Assistant Name Role Phone Unavailable Primary Care Provider Unavailabl e Encounter Details Date Type Department Care Team (Late st Contact Info) Description 11/23/2022 Clinisync Result Encounter [facility] External Department Unsolicited Magdalena Suárez, DO [address] [facility] [address] [place], [place] [id number] Social History Tobacco Use Types Packs/Day Years [...] EDT Narrative 11/23/2022 10:37 AM EDT The [address] [address] Ultrasound Report Signed Patient: MARGARITA NAGEL MR#: [id number] : 1995 Acct:[id number] Age/Sex: 27 / F ADM Date: 11/23/22 Loc: US Attending Dr: Magdalena Suárez D.O. Ordering Physician: Magdalena Suárez D.O. Date of Service: 11/23/22 Procedure(s): US OB cervical length Accession Number(s): [id number] cc: Magdalena Suárez D.O.; Physician,Non-Staff Norma The [address] [address] Patient Name: MARGARITA NAGEL MRN: [id number] date: 1995 Sex: F Assigned Patient Location: US Current Patient Location: ED.MAIN Accession/Order Number: [id number] Exam Date: 11/23/2022 09:03 Report Date: 11/23/2022 [...] Signed By: 11/24/22 0809 DD/ 1037 TD/TT: Wood Carver: Procedure Note Radiology, Radiologist, MD - 11/24/2022 [place] [address] Ultrasound Report Signed Patient: MARGARITA NAGEL LMR#: [id number] : 1995Acct:[id number] Age/Sex: 27 / FADM Date: 11/23/22 Loc: US Attending Dr: Magdalena Suárez D.O. Ordering Physician: Magdalena Suárez D.O. Date of Service: 11/23/22 Procedure(s): US OB cervical length Accession Number(s): [id number] cc: Magdalena Suárez D.O.; Physician,Non-Staff Norma The [place] [address] Patient Name: MARGARITA NAGEL MRN: [facility]:[id number] date: 1995 Sex: F Assigned Patient Location: US Current Patient Location: ED.MAIN Accession/Order Number: [id number] Exam Date: 11/23/2022 09:03 Report Date: 11/23/2022 [...] M.D. Signed By:11/24/22 0809 DD/ 1037 TD/TT: Wood Carver: us Magdalena Suárez DO [facility] Final Result documented in this encounter Visit Diagnoses Not on filedocumented in this encounter
--- OUTSIDE RECORDS SUMMARY | 2024-07-02 11:10 | XMS_ITS | Encounter Summary ---
Author Organization [facility] Address [address] [place] [address] Care Team Providers Care Delivery Professional Name Role Phone Unavailable Primary Care Provider Unavailabl e Encounter Details Date Type Department Care Team (Late st Contact Info) Description 11/23/2022 Clinisync Result Encounter [facility] External Department Unsolicited Magdalena Suárez, DO [address] [facility] [address] [place] [place], [place] [id number] Social History Tobacco Use Types Packs/Day Years [...] AM EDT Narrative 11/23/2022 10:37 AM EDT [address] [address] Ultrasound Report Signed Patient: MARGARITA NAGEL MR#: [id number] : 1995 Acct:[id number] Age/Sex: 27 / F ADM Date: 11/23/22 Loc: US Attending Dr: Magdalena Suárez D.O. Ordering Physician: Magdalena Suárez D.O. Date of Service: 11/23/22 Procedure(s): US OB anatomy Accession Number(s): [id number] cc: Magdalena Suárez D.O.; Physician,Non-Staff Norma [address] [address] Patient Name: MARGARITA NAGEL MRN: [id number] date: 1995 Sex: F Assigned Patient Location: US Current Patient Location: US Accession/Order Number: [id number] Exam Date: 11/23/2022 09:03 Report Date: 11/23/2022 [...] Signed By: 11/23/22 1039 DD/ 1037 TD/TT: Travel Sales Consultant: Procedure Note Radiology, Radiologist, MD - 11/23/2022 [place] [address] Ultrasound Report Signed Patient: MARGARITA NAGEL LMR#: [id number] : 1995Acct:[id number] Age/Sex: 27 / FADM Date: 11/23/22 Loc: US Attending Dr: Magdalena Suárez D.O. Ordering Physician: Magdalena Suárez D.O. Date of Service: 11/23/22 Procedure(s): US OB anatomy Accession Number(s): [id number] cc: Magdalena Suárez D.O.; Physician,Non-Staff Norma The [place] [id number] Patient Name: MARGARITA NAGEL MRN: [facility]:[id number] date: 1995 Sex: F Assigned Patient Location: US Current Patient Location: US Accession/Order Number: [id number] Exam Date: 11/23/2022 09:03 Report Date: 11/23/2022 [...] M.D. Signed By:11/23/22 1039 DD/ 1037 TD/TT: Travel Sales Consultant: us Magdalena Suárez DO [facility] Final Result documented in this encounter Visit Diagnoses Not on filedocumented in this encounter
--- OUTSIDE RECORDS SUMMARY | 2024-07-02 11:10 | XMS_ITS | Encounter Summary ---
Author Organization [facility] Address [address] [place] [address] Care Team Providers Care Marketing Assistant Retail Division Name Role Phone Unavailable Primary Care Provider Unavailabl e Encounter Details Date Type Department Care Team (Late st Contact Info) Description 11/09/2022 Abstract [facility] [address] [facility] [place] [phone] Shaun Suárez, DO [address] [facility] [address] [place], [place] [phone] Social History Tobacco Use Types Packs/Day Years [...]
[2024-07-02 11:15] VITALS: BP 134/64
--- NOTE | 2024-07-02 11:15 | ED_ITS ---
HPI HPI - General Adult General Chief complaint: Urogenital-Female Stated complaint: VAGINAL ISSUES- HX OF BARTHOLIN CYST Time Seen by Provider: 07/02/24 11:04 Mode of arrival: walk-in History of Present Illness HPI narrative: 28-year-old female presents for a swollen area in her vagina. She has had it for about a month and she thinks it is a Bartholin cyst. She had 1 several years ago and had to have it drained. She has had no drainage at this time. 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 Suárez, in about a year. Related Data Previous Rx's ?Medication ?Instructions ?Recorded amoxicillin 875 mg tablet 875 mg PO BID #14 tabs 06/30 acetaminophen 300 mg-codeine 30 mg 1 tab PO Q6H PRN pa in 5 days #20 07/02/24 tablet tabs cephalexin 500 mg capsule 500 mg PO QID 10 days #40 ca ps 07/02/24 Allergies Allergy/AdvReac Type Severity Reaction Status Date / Time No Known Drug Allergies Allergy Verified 07/02/24 11:05 Opioid HPI Opioid Management Most Recent Opioid Data: Last Pain Scale 3 04/06/23, 04:30 Ur Phencyclidine Scrn, (NEGATIVE) Negative , 04:55 Review of Systems ROS Narrative A ten point review of systems is negative except as noted above. PFSH PFSH Medical History (Updated 07/02/24 @ 11:37 by Donal Tamayo MD) Cholestasis during ?O26.619 - Liver and biliary tract disorders in , unspecified trimester (ICD-10) ?K83.1 - Obstruction of bile duct (ICD-10) Family History (Updated 04/04/23 @ 05:36 by Benja Barrera) Mother Family history of hypertension Grandfather Family history of cancer Grandmother Family history of cancer Social History (Updated 04/04/23 @ 05:39 by Benja Barrera) Within the past year, how often did you have a drink containing alcohol: monthly or less Within the past year, how many standard drinks containing alcohol did you have on a typical day: 1 or 2 Within the past year, how often did you have six or more drinks on one occasion: never Total score: 0 Score interpretation: A score less than 3 is consistent with normal alcohol consumption. Smoking status: Current every day smoker Non-prescribed substance use: cannabis (any form) Non-prescribed substance use details: Pt states she smoked cannabis up until 6mo of Highest level of school completed/degree received: high school graduate Little interest or pleasure in doing things: not at all Feeling down, depressed, or hopeless: not at all Exam Narrative Exam Narrative: Nurses note and vital signs reviewed and patient is not hypoxic. General: The patient appears well and in no apparent distress. Patient is resting comfortably on cart. Skin: Warm, dry, no pallor noted. There is no rash noted. Head: Normocephalic, atraumatic Eye: Normal conjunctiva, no drainage Ears, Nose, Mouth, and Throat: oral mucosa is moist. Nares patent. Cardiovascular: Regular Rate and Rhythm Respiratory: Patient is in no distress, no accessory muscle use, lungs are clear to auscultation, no wheezing, rales or rhonchi Back: non-tender GI: Soft and nontender : Fluctuant swollen area at the left inferior aspect of the introitus of the vagina. Musculoskeletal: The patient has no evidence of calf tenderness, no pitting edema, symmetrical pulses noted bilaterally Neurological: A&O, normal speech Psychiatric: Cooperative Constitutional Vital Signs, click to edit/add: Last Vital Signs Temp 98 F 07/02/24 11:06 Pulse 88 07/02/24 11:06 Resp 20 07/02/24 11:06 BP 134/64 07/02/24 11:15 Pulse Ox 97 07/02/24 11:06 O2 Del Method Room Air 07/02/24 11:06 Course Vital Signs Vital signs: Vital Signs Temperature 98 F 07/02/24 11:06 Pulse Rate 88 07/02/24 11:06 Respiratory Rate 20 07/02/24 11:06 Pulse Oximetry 97 07/02/24 11:06 Oxygen Delivery Method Room Air 07/02/24 11:06 Temperature 98 F 07/02/24 11:06 Pulse Rate 88 07/02/24 11:06 Respiratory Rate 20 07/02/24 11:06 Blood Pressure 134/64 07/02/24 11:15 Pulse Oximetry 97 07/02/24 11:06 Oxygen Delivery Method Room Air 07/02/24 11:06 Medical Decision Making [facility] Narrative Medical decision making narrative: The following procedure was performed by me. Local infiltration was carried out with 1% lidocaine without epinephrine resulting in complete skin anesthesia of the left Bartholin cyst area. The area was prepped with Betadine x 3 and draped sterilely and an incision was made with a #11 blade. A large amount of purulent material was extracted. No complications and she tolerated the procedure well. She is prescribed Keflex. I asked her about STDs and she states she has no concern whatsoever about an STD. She has had a Bartholin cyst 6 or 7 times and she is going to follow-up promptly with her warehouse distribution specialist. She was prescribed Tylenol 3 for pain. Differential Diagnosis Differential Diagnosis: Abscess, Bartholin cyst Discharge Plan Discharge Chief Complaint: Urogenital-Female Clinical Impression: Bartholin cyst Patient Disposition: Home, Self-Care Time of Disposition Decision: 11:37 Condition: Good Mode of Transportation: Private Vehicle Prescriptions / Home Meds: New acetaminophen-codeine 300-30 mg tablet 1 tab PO Q6H PRN (Reason: pain) 5 Days Qty: 20 0RF cephalexin 500 mg capsule 500 mg PO QID 10 Days Qty: 40 0RF No Action amoxicillin 875 mg tablet 875 mg PO BID Qty: 14 0RF Print Language: Ukrainian Instructions: Bartholin Cyst (ED) Additional Instructions: Call Dr. Suárez's office in the morning for follow-up appointment. Referrals: Physician,Non-Staff, MD [Primary Care Provider] - 1 week
--- NOTE | 2024-07-02 11:48 | PC.NURSE ---
Cyst to left side of vaginal opening. No drainage, surrounding skin intact.
[2024-07-02] MEDS: LIDOCAINE HCL 1% 100 MG/10 ML MDV INJ (12:09)
== END 2024-07-02 11:51 | disposition home or self-care (01) ==
PROVIDERS: Emergency Provider Emergency Medicine
DX: N75.0 Cyst of Bartholin's gland (principal); F17.200 Nicotine dependence, unspecified, uncomplicated
CPT/HCPCS: 56420; 87070; 87075; 99284